=== PATIENT | male | born 1970 | race American Indian/Alaskan Native ===

== ENCOUNTER 2018-06-09 14:12 | Emergency (ER) | payer OTHER ==
[2018-06-09] MEDS ORDERED: BENADRYL IV ONE (15:49)
[2018-06-09] MEDS ORDERED: TORADOL IV ONE (15:49)
[2018-06-09] MEDS ORDERED: REGLAN IV ONE (15:49)
--- NOTE | 2018-06-09 15:57 | Emergency Department Report ---
Blank Doc - Documentation Documentation: 47 year old male with a past medical history of chronic headaches for the past 5 -6 years presents to Hospital complaining of headache. Patient states he gets headaches almost every day. Headaches include both temples and forehead. Today pain is worse than usual with photophobia and nausea. No vomiting or focal weakness reported. Patient states he felt hot and sweaty earlier today but did not check for fever. Patient takes Goody powders daily headaches which typically helps. It did not help today. He has never had a CAT scan or seen a neurologist Neuro exam nonfocal No nuchal rigidity IV Reglan, Benadryl, and Toradol CT head Mid-level to follow
--- NOTE | 2018-06-09 16:22 | Cat Scan Report ---
FINAL REPORT EXAM: CT HEAD/BRAIN WO CON HISTORY: frontal/bitemporal ibrahim, photophobia TECHNIQUE: CT examination of the head without IV contrast PRIORS: None. FINDINGS: Scattered slight mucosal thickening and opacity in the left mastoid air cells posteriorly and inferiorly. Small fluid level visualized, nonspecific. Left middle ear cavity clear. Right mastoid air cells and middle ear cavity clear. Paranasal sinuses clear. Bone windows demonstrate no acute fracture. The brain is without mass, mass effect, hemorrhage, or acute infarct. There is no extra-axial intracranial bleed, brain bleed, or midline shift. The ventricles and sulci are age-appropriate. IMPRESSION: No acute CVA, intracranial bleed, or brain mass Left mastoid air cell opacity with small fluid level may reflect left eustachian tube dysfunction. Differential includes left mastoiditis
--- NOTE | 2018-06-09 17:03 | Emergency Department Report ---
ED Headache HPI - General Chief Complaint: Headache Stated Complaint: HEADACHE Time Seen by Provider: 06/09/18 15:44 - History of Present Illness Initial Comments: This is a 47-year-old male nontoxic, well nourished in appearance, no acute signs of distress presents to the ED with c/o of acute on chronic headache x6 years. Patient describes headache as diffuse with level of 3 out of 10. Patient also has photophobia and some nausea with no vomiting. Patient denies thunderclap headache. Patient denies any radiation of pain. Patient denies any head trauma. Patient denies any visual changes. Patient denies worse headache. Patient stated that darkness makes headache better and bright lights make the headache worse. Patient denies any numbness, tingling, fever, chills, nausea, vomiting, chest pain, shortness of breath, stiff neck. Patient denies any radiation of pain. Patient denies any allergies. Past medical history includes migraine headaches. Timing/Duration: episodic Quality: mild, achy Head Injury Location: other (diffuse) Recent Head Trauma: no recent headache/trauma, occasional headaches Associated Symptoms: denies symptoms. denies: confusion, fatigue, facial pain, fever/chills, flushing, loss of consciousness, nausea/vomiting, nasal congestion , nasal drainage, numbness in legs/feet, rash, seizures, sinus infection, stiff neck, vision changes, weakness Allergies/Adverse Reactions: Allergies No Known Allergies Allergy (Unverified 06/09/18 14:20) Home Medications: Ambulatory Orders Butalb/Acetamin/Caff 50-325-40 [Fioricet] 1 tab PO Q6HR PRN #12 tab 06/09/18 ED Review of Systems ROS: Stated complaint: HEADACHE Other details as noted in HPI Constitutional: denies: chills, fever Eyes: denies: eye pain, eye discharge, vision change ENT: denies: ear pain, throat pain Respiratory: denies: cough, shortness of breath, wheezing Cardiovascular: denies: chest pain, palpitations Endocrine: no symptoms reported Gastrointestinal: denies: abdominal pain, nausea, vomiting, diarrhea Genitourinary: denies: urgency, dysuria Musculoskeletal: denies: back pain, joint swelling, arthralgia Skin: denies: rash, lesions Neurological: headache. denies: weakness, paresthesias Psychiatric: denies: anxiety, depression Hematological/Lymphatic: denies: easy bleeding, easy bruising ED Past Medical Hx - Past Medical History Previous Medical History?: No - Surgical History Past Surgical History?: Yes Additional Surgical History: right hand - Social History Smoking Status: Current Every Day Smoker Substance Use Type: Alcohol, Marijuana - Medications Home Medications: Home Medications Medication Instructions Recorded Confirmed Last Taken Type Butalb/Acetamin/Caff 50-325-40 1 tab PO Q6HR PRN #12 tab 06/09/18 Unknown Rx [Fioricet] ED Physical Exam - General Limitations: No Limitations General appearance: alert, in no apparent distress - Head Head exam: Present: atraumatic, normocephalic - Eye Eye exam: Present: normal appearance, PERRL, EOMI Pupils: Present: normal accommodation - ENT ENT exam: Present: normal exam, mucous membranes moist - Neck Neck exam: Present: normal inspection, full ROM. Absent: tenderness, meningismus, lymphadenopathy - Respiratory Respiratory exam: Present: normal lung sounds bilaterally. Absent: respiratory distress, wheezes, rales, rhonchi, stridor, chest wall tenderness, accessory muscle use, decreased breath sounds, prolonged expiratory - Cardiovascular Cardiovascular Exam: Present: regular rate, normal rhythm, normal heart sounds. Absent: bradycardia, tachycardia, irregular rhythm, systolic murmur, diastolic murmur, rubs, gallop - GI/Abdominal GI/Abdominal exam: Present: soft, normal bowel sounds. Absent: distended, tenderness, guarding, rebound, rigid, diminished bowel sounds - Rectal Rectal exam: Present: deferred - Extremities Exam Extremities exam: Present: normal inspection, full ROM, normal capillary refill. Absent: tenderness - Back Exam Back exam: Present: normal inspection, full ROM. Absent: tenderness, CVA tenderness (R), CVA tenderness (L), muscle spasm, paraspinal tenderness, vertebral tenderness, rash noted - Neurological Exam Neurological exam: Present: alert, oriented X3, CN II-XII intact, normal gait - Expanded Neurological Exam Expanded Patient oriented to: Present: person, place, time Cranial nerves: EOM's Intact: Normal, Gag Reflex: Normal, Facial Sensation: Normal Cerebellar function: Finger to Nose: Normal Upper motor neuron: Pronator Drift: Normal, Sensory Extinction: Normal Sensory exam: Upper Extremity Light Touch: Normal, Upper Extremity Pin Prick: Normal, Upper Extremity Temperature: Normal, UE 2 Point Discrimination: Normal, Lower Extremity Light Touch: Normal, Lower Extremity Pin Prick: Normal, Lower Extremity Temperature: Normal, LE 2 Point Discrimination: Normal Motor strength exam: RUE: 5, LUE: 5, RLE: 5, LLE: 5 Best Eye Response (Letty): (4) open spontaneously Best Motor Response (Allen): (6) obeys commands Best Verbal Response (Allen): (5) oriented Letty Total: 15 - Psychiatric Psychiatric exam: Present: normal affect, normal mood - Skin Skin exam: Present: warm, dry, intact, normal color. Absent: rash ED Course Vital Signs 06/09/18 14:16 Temperature 97.6 F Pulse Rate 53 L Respiratory 20 Rate Blood Pressure 131/44 O2 Sat by Pulse 100 Oximetry - Reevaluation(s) Reevaluation #1: 06/09/18 17:04 Patient is speaking in full sentences with no signs of distress noted. ED Medical Decision Making - Medical Decision Making This is a 47-year-old male that presents with headache. Patient is stable and was examined by me and Dr. Mccabe. Patient is neurologically stable. There is no stiff neck or neck pain. Vital signs are stable. Patient is afebrile. CT scan of head/brain obtained and dictated by the radiologist within normal limits. Patient is notified of the CT report with no questions noted. Patient received Benadryl, Reglan, Toradol which the patient stated that headache has subsided and resolved. Patient was instructed not to operate any machinery after discharged due to drowsiness of Benadryl. Patient stated that a family member will drive patient home. Patient is discharged with Fioricet. Patient was referred to Follow-up with a primary care/neurologist doctor in 3-5 days or if symptoms worsen and continue return to emergency room as soon as possible. At time of discharge, the patient does not seem toxic or ill in appearance. No acute signs of distress noted. Patient agrees to discharge treatment plan of care. No further questions noted by the patient. Critical care attestation.: If time is entered above; I have spent that time in minutes in the direct care of this critically ill patient, excluding procedure time. ED Disposition Clinical Impression: Headache Qualifiers: Headache type: unspecified Headache chronicity pattern: episodic headache Intractability: not intractable Qualified Code(s): R51 - Headache Disposition: DC-01 TO HOME OR SELFCARE Is pt being admited?: No Does the pt Need Aspirin: No Condition: Stable Instructions: Acute Headache (ED), Butalbital/Aspirin/Caffeine (By mouth) Additional Instructions: Follow-up with a primary care/neurologist doctor in 3-5 days or if symptoms worsen and continue return to emergency room as soon as possible. Prescriptions: Butalb/Acetamin/Caff 50-325-40 [Fioricet] 1 tab PO Q6HR PRN #12 tab PRN Reason: Headache Referrals: PRIMARY CARE, [Primary Care Provider] - 3-5 Days CAITLIN GONSALES MD [Staff Physician] - 3-5 Days CATALINA CARMONA MD [Staff Physician] - 3-5 Days [facility] [Outside] - 3-5 Days Forms: Work/School Release Form(ED)
[2018-06-09 17:29] VITALS: BP 138/83
== END 2018-06-09 17:27 | disposition home or self-care (01) ==
LOC: ED 14:12
DX: R51 Headache (principal); F17.200 Nicotine dependence, unspecified, uncomplicated; F12.90 Cannabis use, unspecified, uncomplicated
CPT/HCPCS: 70450; 96374; 96375; 99283; J1200; J1885; J2765

== ENCOUNTER 2021-01-02 12:02 | Emergency (ER) | payer SELFPAY ==
[2021-01-02 13:43] LABS: Hematocrit 33.5 % (35.5-45.6); Hemoglobin 11.2 gm/dl (11.8-15.2); Mean Corpuscular HGB Conc 34 % (32-34); Mean Corpuscular Volume 90 fl (84-94); Platelet Count 227 K/mm3 (140-440); Red Blood Count 3.75 M/mm3 (3.65-5.03); Red Cell Distribution Width 13.6 % (13.2-15.2)
[2021-01-02 14:00] LABS: Alanine Aminotransferase 7 units/L (7-56); Albumin 3.6 g/dL (3.9-5); BUN/Creatinine Ratio 8; Blood Urea Nitrogen 8 mg/dL (9-20); Calcium 8.2 mg/dL (8.4-10.2); Hemolysis Index 3
[2021-01-02 14:26] LABS: Bilirubin,Urine NEG (Negative); Blood,Urine NEG (Negative); Color,Urine Yellow (Yellow); Mucus,Urine FEW /HPF; Protein,Urine <15 mg/dL mg/dL (Negative)
[2021-01-02 15:23] LABS: Total Cells Counted 100
[2021-01-02 15:24] LABS: Platelet Estimate Consistent w Auto; RBC Morphology Normal
[2021-01-02] MEDS ORDERED: KETOROLAC 30 MG/1 ML INJ IV ONE (15:46)
[2021-01-02 16:13] VITALS: BP 132/91
--- NOTE | 2021-01-02 16:30 | Cat Scan Report ---
CT ABDOMEN AND PELVIS WITH CONTRAST HISTORY: Lower abdominal pain for 3 days COMPARISON: None TECHNIQUE: Routine abdominal and pelvic CT exam performed following intravenous contrast administrat ion.. All CT scans at this location are performed using CT dose reduction for ALARA by means of autom ated exposure control. FINDINGS: CT ABDOMEN: Lung Bases: Mild linear scarring in the right middle lobe. Liver: No significant abnormality. Biliary: No significant abnormality. Spleen: No significant abnormality. Unenlarged. Pancreas: No significant abnormality. Adrenals: No significant abnormality. Kidneys: No significant abnormality. Lymphatics: There is mild retroperitoneal adenopathy. For example, there is a left periaortic node on image 71 of series #2 that measures 2.5 x 2.0 cm. Vasculature: Atherosclerotic but nonaneurysmal abdominal aorta. Bowel/Peritoneum: No significant abnormality. No free air. No free fluid. Normal appendix. CT PELVIC: : There is an incompletely visualized right-sided hydrocele. Lymphatics: There is mild bilateral inguinal adenopathy. For example, there is a right inguinal lymph node that measures 1.4 x 2.1 cm. Osseous Structures: No aggressive appearing osseous lesions. Additional Findings: None IMPRESSION: 1. There is retroperitoneal and bilateral inguinal adenopathy, of uncertain etiology. Differential co nsiderations would include reactive adenopathy, metastatic adenopathy, or lymphoproliferative disorde r/neoplasm. 2. Incidental right scrotal hydrocele noted. Signer Name: Simon Rubalcava MD Signed: 01/02/2021 4:26 PM Workstation Name: [id number]
--- NOTE | 2021-01-02 16:56 | Emergency Department Report ---
ED Abdominal Pain HPI - General Chief Complaint: Abdominal Pain Stated Complaint: ABD PAIN Time Seen by Provider: 01/02/21 14:26 Source: patient Mode of arrival: Ambulatory Limitations: No Limitations - History of Present Illness Initial Comments: Patient is a 50-year-old F [place] male who is presenting with some generalized abdominal pain which is been off and on for the past 2 to 3 days. This is a crampy pain. He denies nausea vomiting diarrhea or dysuria. States he does have some urinary hesitancy but attributed this to probable prostate issue. Patient has a right scrotal hernia has been present for several months but states he is still having bowel movements. He denies any fevers chills cough cold congestion at this time. Severity scale (0 -10): 3 - Related Data Previous Rx's Medication Instructions Recorded Last Taken Type Ciprofloxacin HCl 500 mg PO BID #20 tablet 01/02/21 Unknown Rx Dicyclomine [Bentyl] 20 mg PO QID #10 tablet 01/02/21 Unknown Rx metroNIDAZOLE [Flagyl] 500 mg PO Q12HR #20 tab 01/02/21 Unknown Rx traMADoL [Ultram] 50 mg PO Q6HR PRN #12 tablet 01/02/21 Unknown Rx Allergies Allergy/AdvReac Type Severity Reaction Status Date / Time No Known Allergies Allergy Verified 01/02/21 14:29 ED Review of Systems ROS: Stated complaint: ABD PAIN Other details as noted in HPI Comment: All other systems reviewed and negative ED Past Medical Hx - Past Medical History Previous Medical History?: No - Surgical History Additional Surgical History: right hand - Social History Smoking Status: Never Smoker Substance Use Type: None - Medications Home Medications: Home Medications Medication Instructions Recorded Confirmed Last Taken Type Ciprofloxacin HCl 500 mg PO BID #20 tablet 01/02/21 Unknown Rx Dicyclomine [Bentyl] 20 mg PO QID #10 tablet 01/02/21 Unknown Rx metroNIDAZOLE [Flagyl] 500 mg PO Q12HR #20 tab 01/02/21 Unknown Rx traMADoL [Ultram] 50 mg PO Q6HR PRN #12 tablet 01/02/21 Unknown Rx ED Physical Exam - General Limitations: No Limitations General appearance: alert, in no apparent distress - Head Head exam: Present: atraumatic, normocephalic - Eye Eye exam: Present: normal appearance, PERRL, EOMI - ENT ENT exam: Present: mucous membranes moist - Neck Neck exam: Present: normal inspection - Respiratory Respiratory exam: Present: normal lung sounds bilaterally. Absent: respiratory distress, wheezes, rales, rhonchi - Cardiovascular Cardiovascular Exam: Present: regular rate, normal rhythm, normal heart sounds. Absent: systolic murmur, diastolic murmur, rubs, gallop - GI/Abdominal GI/Abdominal exam: Present: soft, normal bowel sounds, other (Patient states he is pain-free at this time). Absent: distended, tenderness, guarding, rebound, rigid - Rectal Rectal exam: Present: deferred - External exam: Present: other (Right scrotal hernia which is reducible) - Extremities Exam Extremities exam: Present: normal inspection - Back Exam Back exam: Present: normal inspection - Neurological Exam Neurological exam: Present: alert, oriented X3 - Psychiatric Psychiatric exam: Present: normal affect, normal mood - Skin Skin exam: Present: warm, dry, intact, normal color. Absent: rash ED Course Vital Signs 01/02/21 01/02/21 01/02/21 12:11 14:22 14:23 Temperature 98 F Pulse Rate 90 80 Respiratory 20 16 18 Rate Blood Pressure 117/92 Blood Pressure 115/83 [Left] O2 Sat by Pulse 96 98 Oximetry 01/02/21 16:12 Temperature Pulse Rate 64 Respiratory 16 Rate Blood Pressure Blood Pressure 132/91 [Left] O2 Sat by Pulse 99 Oximetry ED Medical Decision Making - Lab Data Result diagrams: 01/02/21 12:59 01/02/21 12:59 Lab Results 01/02/21 01/02/21 01/02/21 Range/Units 12:59 12:59 14:15 WBC 3.6 L (4.5-11.0) K/mm3 RBC 3.75 (3.65-5.03) M/mm3 Hgb 11.2 L (11.8-15.2) gm/dl Hct 33.5 L (35.5-45.6) % MCV 90 (84-94) fl MCH 30 (28-32) pg MCHC 34 (32-34) % RDW 13.6 (13.2-15.2) % Plt Count 227 (140-440) K/mm3 Lymph % (Auto) Administration Dean Add Manual Diff Complete Total Counted 100 Seg Neutrophils % Administration Dean Seg Neuts % (Manual) 43.0 (40.0-70.0) % Lymphocytes % (Manual) 56.0 H (13.4-35.0) % Monocytes % (Manual) 1.0 (0.0-7.3) % Nucleated RBC % Not Reportable Seg Neutrophils # Man 1.5 L (1.8-7.7) K/mm3 Band Neutrophils # 0.0 K/mm3 Lymphocytes # (Manual) 2.0 (1.2-5.4) K/mm3 Abs React Lymphs (Man) 0.0 K/mm3 Monocytes # (Manual) 0.0 (0.0-0.8) K/mm3 Eosinophils # (Manual) 0.0 (0.0-0.4) K/mm3 Basophils # (Manual) 0.0 (0.0-0.1) K/mm3 Metamyelocytes # 0.0 K/mm3 Myelocytes # 0.0 K/mm3 Promyelocytes # 0.0 K/mm3 Blast Cells # 0.0 K/mm3 WBC Morphology Not Reportable Hypersegmented Neuts Not Reportable Hyposegmented Neuts Not Reportable Hypogranular Neuts Not Reportable Smudge Cells Not Reportable Toxic Granulation Not Reportable Toxic Vacuolation Not Reportable Dohle Bodies Not Reportable Pelger-Huet Anomaly Not Reportable Elmo Rods Not Reportable Platelet Estimate Consistent w auto Clumped Platelets Not Reportable Plt Clumps, EDTA Not Reportable Large Platelets Not Reportable Giant Platelets Not Reportable Platelet Satelliting Not Reportable Plt Morphology Comment Not Reportable RBC Morphology Normal Dimorphic RBCs Not Reportable Polychromasia Not Reportable Hypochromasia Not Reportable Poikilocytosis Not Reportable Anisocytosis Not Reportable Microcytosis Not Reportable Macrocytosis Not Reportable Spherocytes Not Reportable Pappenheimer Bodies Not Reportable Sickle Cells Not Reportable Target Cells Not Reportable Tear Drop Cells Not Reportable Ovalocytes Not Reportable Helmet Cells Not Reportable Davis-Winslow Bodies Not Reportable Laurel Rings Not Reportable Ching Cells Not Reportable Bite Cells Not Reportable Crenated Cell Not Reportable Elliptocytes Not Reportable Acanthocytes (Spur) Not Reportable Rouleaux Not Reportable Hemoglobin C Crystals Not Reportable Schistocytes Not Reportable Malaria parasites Not Reportable Femi Bodies Not Reportable Hem Pathologist Commnt No Sodium 139 (137-145) mmol/L Potassium 4.0 (3.6-5.0) mmol/L Chloride 103.3 (98-107) mmol/L Carbon Dioxide 27 (22-30) mmol/L Anion Gap 13 mmol/L BUN 8 L (9-20) mg/dL Creatinine 1.0 (0.8-1.3) mg/dL Estimated GFR > 60 ml/min BUN/Creatinine Ratio 8 % Glucose 98 (75-100) mg/dL Calcium 8.2 L (8.4-10.2) mg/dL Total Bilirubin 0.20 (0.1-1.2) mg/dL AST 23 (5-40) units/L ALT 7 (7-56) units/L Alkaline Phosphatase 88 (35-129) units/L Total Protein 7.9 (6.3-8.2) g/dL Albumin 3.6 L (3.9-5) g/dL Albumin/Globulin Ratio 0.8 % Lipase 23 (13-60) units/L Urine Color Yellow (Yellow) Urine Turbidity Clear (Clear) Urine pH 6.0 (5.0-7.0) Ur Specific Winslow 1.018 (1.003-1.030) Urine Protein <15 mg/dl (Negative) mg/dL Urine Glucose (UA) Neg (Negative) mg/dL Urine Ketones Neg (Negative) mg/dL Urine Blood Neg (Negative) Urine Nitrite Neg (Negative) Urine Bilirubin Neg (Negative) Urine Urobilinogen 2.0 (<2.0) mg/dL Ur Leukocyte Esterase Neg (Negative) Urine WBC (Auto) 1.0 (0.0-6.0) /HPF Urine RBC (Auto) 3.0 (0.0-6.0) /HPF U Epithel Cells (Auto) < 1.0 (0-13.0) /HPF Urine Mucus Few /HPF - Radiology Data Reporting MD: Simon Rubalcava Dictation Time: January 02, 2021 15:26 Chinese Language Professor: Not available Electrical Engineering Teacher Date: CT ABDOMEN AND PELVIS WITH CONTRAST HISTORY: Lower abdominal pain for 3 days COMPARISON: None TECHNIQUE: Routine abdominal and pelvic CT exam performed following intravenous contrast administration.. All CT scans at this location are performed using CT dose reduction for ALARA by means of automated exposure control. FINDINGS: CT ABDOMEN: Lung Bases: Mild linear scarring in the right middle lobe. Liver: No significant abnormality. Biliary: No significant abnormality. Spleen: No significant abnormality. Unenlarged. Pancreas: No significant abnormality. Adrenals: No significant abnormality. Kidneys: No significant abnormality. Lymphatics: There is mild retroperitoneal adenopathy. For example, there is a left periaortic node on image 71 of series #2 that measures 2.5 x 2.0 cm. Vasculature: Atherosclerotic but nonaneurysmal abdominal aorta. Bowel/Peritoneum: No significant abnormality. No free air. No free fluid. Normal appendix. CT PELVIC: : There is an incompletely visualized right-sided hydrocele. Lymphatics: There is mild bilateral inguinal adenopathy. For example, there is a right inguinal lymph node that measures 1.4 x 2.1 cm. Osseous Structures: No aggressive appearing osseous lesions. Additional Findings: None IMPRESSION: 1. There is retroperitoneal and bilateral inguinal adenopathy, of uncertain etiology. Differential considerations would include reactive adenopathy, metastatic adenopathy, or lymphoproliferative disorder/neoplasm. 2. Incidental right scrotal hydrocele noted. Signer Name: Simon Rubalcava MD Signed: 01/02/2021 3:26 PM Workstation Name: [id number] - Medical Decision Making Patient with significant lymphadenopathy in the abdomen which could be neoplastic in nature but also could be a mesenteric adenitis. Patient be started on Cipro Flagyl we will give medication for symptomatic relief and follow-up with general surgery for further evaluation and for evaluation of his hernia. Critical care attestation.: If time is entered above; I have spent that time in minutes in the direct care of this critically ill patient, excluding procedure time. ED Disposition Clinical Impression: Mesenteric adenitis, Inguinal hernia Disposition: - TO HOME OR SELFCARE Is pt being admited?: No Does the pt Need Aspirin: No Condition: Stable Instructions: Inguinal Hernia, Adult, [id number], Mesenteric Adenitis, Adult Referrals: DIMITRI LABOY MD [Staff Physician] - 3-5 Days Time of Disposition: 16:59
== END 2021-01-02 17:22 | disposition home or self-care (01) ==
LOC: ED 12:02
DX: I88.0 Nonspecific mesenteric lymphadenitis (principal); K40.90 Unilateral inguinal hernia, without obstruction or gangrene, not specified as recurrent; Z98.890 Other specified postprocedural states; Z79.899 Other long term (current) drug therapy
CPT/HCPCS: 36415; 74177; 80053; 81001; 83690; 85007; 85025; 96374; 99284; J1885; Q9967

== ENCOUNTER 2021-02-08 05:59 | Day surgery (SDC) | payer OTHER ==
[2021-02-08] MEDS ORDERED: MAGNESIUM OXIDE 400 MG TAB PO SCH (06:00)
[2021-02-08] MEDS ORDERED: GABAPENTIN 300 MG CAP PO NR (06:00)
[2021-02-08] MEDS ORDERED: CELECOXIB 200 MG CAP PO NR (06:00)
[2021-02-08] MEDS ORDERED: LACTATED RINGERS 1,000 ML IV SCH (06:00)
[2021-02-08] MEDS ORDERED: ACETAMINOPHEN 500 MG TAB PO ONE (06:00)
[2021-02-08] MEDS ORDERED: BACTERIOSTATIC SODIUM CHLORIDE 0.9% 30 ML VIAL INFILTRATI ONE (06:16)
[2021-02-08] MEDS ORDERED: ceFAZolin/STERILE WATER 2 GM/20 ML SYRINGE IV NR (07:00)
[2021-02-08 08:04] LABS: Basophils % (Auto) 0.7 % (0.0-1.8); Eosinophils % (Auto) 0.3 % (0.0-4.3); Hematocrit 30.5 % (35.5-45.6); Hemoglobin 10.2 gm/dl (11.8-15.2); Lymphocytes # (Auto) 2.3 K/mm3 (1.2-5.4); Lymphocytes % (Auto) 49.4 % (13.4-35.0); Mean Corpuscular HGB Conc 34 % (32-34); Mean Corpuscular Volume 87 fl (84-94); Monocytes # (Auto) 0.4 K/mm3 (0.0-0.8); Monocytes % (Auto) 9.6 % (0.0-7.3); Platelet Count 219 K/mm3 (140-440); Red Blood Count 3.51 M/mm3 (3.65-5.03); Red Cell Distribution Width 13.1 % (13.2-15.2)
[2021-02-08 08:14] LABS: BUN/Creatinine Ratio 13; Blood Urea Nitrogen 10 mg/dL (9-20); Hemolysis Index 1
[2021-02-08 10:58] VITALS: BP 125/72
--- NOTE | 2021-02-08 15:49 | Event Note ---
Date: 02/08/21 Late note: Called this am around 630am by preop RN regarding patient having fever of 101.6 on 2 separate checks with forehead and oral thermometer. Spoke with patient who states he feels fine without chills, cough, sneezing, urinary symptoms, sore throat. COVID test was negative. Due to fever of unknown origin, recommend w/u including CBC, BMP, UA, blood cultures. As hernia surgery involves placement of mesh, it is prudent to r/o infection before proceeding with surgery. Therefore, will cancel surgery today and reschedule once labs and cultures results return. Explained this to patient. If all negative, will reschedule for surgery next week.
== END 2021-02-08 06:00 | disposition home or self-care (01) ==
LOC: OR 05:59
PROVIDERS: ATTEND Surgery
DX: K40.90 Unilateral inguinal hernia, without obstruction or gangrene, not specified as recurrent (principal); R59.0 Localized enlarged lymph nodes; F17.210 Nicotine dependence, cigarettes, uncomplicated; Z53.8 Procedure and treatment not carried out for other reasons; Z79.899 Other long term (current) drug therapy; Z98.890 Other specified postprocedural states
CPT/HCPCS: 36415; 80048; 85025; 87040; J0690; J7120; U0003

== ENCOUNTER 2021-02-12 05:59 | Day surgery (SDC) | payer OTHER ==
[2021-02-12] MEDS ORDERED: MIDAZOLAM 2 MG/2 ML INJ IV NR (06:00)
[2021-02-12] MEDS ORDERED: ACETAMINOPHEN 500 MG TAB PO SCH (06:00)
[2021-02-12] MEDS ORDERED: LACTATED RINGERS 1,000 ML IV SCH (06:00)
[2021-02-12] MEDS ORDERED: ceFAZolin/STERILE WATER 2 GM/20 ML SYRINGE IV NR (07:00)
[2021-02-12] MEDS ORDERED: ONDANSETRON 4 MG/2 ML INJ IV PRN (07:13)
[2021-02-12] MEDS ORDERED: fentaNYL 100 MCG/2 ML INJ IV PRN (07:13)
--- NOTE | 2021-02-12 07:13 | Anesthesia Day of Surgery ---
Anesthesia Day of Surgery - Day of Surgery Patient Examined: Yes Patient H&P Reviewed: Yes Patient is NPO: Yes
--- NOTE | 2021-02-12 07:13 | Anesthesia Consultation ---
Anesthesia Consult and Med Hx Date of service: 02/12/21 - Airway Anesthetic Teeth Evaluation: Dentures ROM Head & Neck: Adequate Mental/Hyoid Distance: Adequate Mallampati Class: Class III Intubation Access Assessment: Possibly Difficult - Pre-Operative Health Status ASA Pre-Surgery Classification: ASA2 Proposed Anesthetic Plan: General - Pulmonary Hx Smoking: Yes (former smoker quit 3 wks ago) Hx Respiratory Symptoms: No - Cardiovascular System Hx Hypertension: No - Central Nervous System CVA: No - Endocrine Hx Renal Disease: No Hx Liver Disease: No Hx Insulin Dependent Diabetes: No Hx Non-Insulin Dependent Diabetes: No Hx Thyroid Disease: No - Other Systems Hx Substance Use: Yes (THC) Hx Obesity: No - Additional Comments Anesthesia Medical History Comments: No hx anesthetic complications.
[2021-02-12] MEDS ORDERED: HYDROmorphone 1 MG/1 ML INJ ONE (07:14)
[2021-02-12] MEDS ORDERED: LIDOCAINE MPF (2%) 20 MG/1 ML VIAL 5 ML ONE (07:14)
[2021-02-12] MEDS ORDERED: MIDAZOLAM 2 MG/2 ML INJ ONE (07:14)
[2021-02-12] MEDS ORDERED: propofoL 200 MG/20 ML VIAL IV ONE (07:14)
[2021-02-12] MEDS ORDERED: BUPIVACAINE/PF (0.5%) 5 MG/1 ML 30 ML VIAL INFILTRATI ONE ×2 (07:33→08:10)
[2021-02-12] MEDS ORDERED: LIDOCAINE (1%) 10 MG/1 ML VIAL 20 ML MDV ONE (07:33)
[2021-02-12] MEDS ORDERED: SODIUM CHLORIDE 0.9% IRR 1,500 ML BOTTLE IR ONE (08:11)
[2021-02-12] MEDS ORDERED: LIDOCAINE (1%) 10 MG/1 ML VIAL 20 ML MDV INFILTRATI ONE (08:11)
--- NOTE | 2021-02-12 08:35 | Short Stay Summary ---
Short Stay Documentation Date of service: 02/12/21 - History Principal diagnosis: inguinal lymphadenopathy H&P: obtained from office - Allergies and Medications Current Medications: Allergies No Known Allergies Allergy (Verified 02/11/21 14:08) Active Medications Acetaminophen (Acetaminophen 500 Mg Tab) 1,000 mg PO PREOP PK Stop: 02/12/21 21:00 Cefazolin Sodium (Cefazolin/Sterile Water 2 Gm/20 Ml Syringe) 2 gm IV PREOP NR Stop: 02/12/21 23:01 Fentanyl (Fentanyl 100 Mcg/2 Ml Inj) 50 mcg IV Q5MIN PRN PRN Reason: Pain , Severe (7-10) Stop: 02/12/21 23:00 Lactated Ringer's (Lactated Ringers) 1,000 mls @ 100 mls/hr IV DIRECT PK Stop: 02/12/21 23:59 Midazolam HCl (Midazolam 2 Mg/2 Ml Inj) 2 mg IV PREOP NR Stop: 02/12/21 21:00 Ondansetron HCl (Ondansetron 4 Mg/2 Ml Inj) 4 mg IV ONCE PRN PRN Reason: Nausea And Vomiting Stop: 02/12/21 20:00 - Brief post op/procedure progress note Date of procedure: 02/12/21 Pre-op diagnosis: inguinal lymphadenopathy Post-op diagnosis: same Procedure: left inguinal lymph node excisional biopsy Anesthesia: MAC, local Findings: multiple palpable enlarged left inguinal lymph nodes - 2 excised. Surgeon: SOHAIL SUH Estimated blood loss: minimal Pathology: list (enlarged left inguinal lymph nodes x2) Specimen disposition: to lab Condition: stable - Hospital course Hospital course: Pt observed in PACU and discharged to home in stable condition - Disposition Condition at discharge: Good Disposition: DC-01 TO HOME OR SELFCARE Short Stay Discharge Plan Activity: no restrictions Diet: regular Wound: open to air (may shower tomorrow, pat incision dry and do not scrub) Follow up with: PRIMARY CARE, [Primary Care Provider] - 7 Days SOHAIL USH DO [Staff Physician] - 7 Days Prescriptions: traMADoL [Ultram 50 MG tab] 25 mg PO Q6H PRN #10 tablet PRN Reason: Pain
[2021-02-12 09:45] VITALS: BP 115/76
[2021-02-12 10:36] LABS: Bilirubin,Urine NEG (Negative); Blood,Urine NEG (Negative); Color,Urine Yellow (Yellow); Mucus,Urine FEW /HPF; Protein,Urine <15 mg/dL mg/dL (Negative); Urobilinogen,Urine < 2.0 mg/dL (<2.0)
--- NOTE | 2021-02-12 13:17 | Post Anesthesia Evaluation ---
- Post Anesthesia Evaluation Patient Participated: Yes Airway Patent: Yes Stable Respiratory Function: Yes Nausea/Vomiting: No Temp > 96.8F: Yes Pain Manageable: Yes Adequeate Hydration: Yes Anesthesia Complications: No
--- NOTE | 2021-02-13 11:57 | Operative Report ---
Operative Report Operative Report: Date of procedure: 02/12/21 Pre-op diagnosis: inguinal lymphadenopathy Post-op diagnosis: same Procedure: left inguinal lymph node excisional biopsy Anesthesia: MAC, local Findings: multiple palpable enlarged left inguinal lymph nodes - 2 excised. Surgeon: SOHAIL SUH Estimated blood loss: minimal Pathology: list (enlarged left inguinal lymph nodes x2) Specimen disposition: to lab Condition: stable Hospital course: Pt observed in PACU and discharged to home in stable condition HPI and indication: Patient is a 50-year-old male who was referred to the surgery clinic for a right inguinal hernia. During work-up he was found to have retroperitoneal lymphadenopathy as well as inguinal lymphadenopathy on CT scan and multiple palpable inguinal lymph nodes. Patient was having fevers of unknown etiology and infectious work-up was negative. Patient also admitted to unintentional weight loss and night sweats. It was recommended that he undergo excisional lymph node biopsy and to postpone hernia repair. All risk, benefits, alternatives to surgery were discussed with the patient questions answered. Consent obtained. Procedure in detail: Patient was identified in the preoperative area and ope rative site marked. He was taken back to the operating room and placed on the operating room table in supine position. After anesthesia was induced the left groin hair was clipped and the groin was prepped and draped in usual sterile fashion. Timeout was performed. Local anesthetic was infiltrated to skin at the intended incision site. A 3 cm incision was made in the left groin over the palpable lymph nodes. Dissection was carried down through the skin and subcutaneous tissue using Bovie electrocautery. The subcutaneous tissue was bluntly dissected with a hemostat until the palpable lymph nodes were visualized. The first lymph node was dissected from the surrounding tissue using a combination of blunt dissection electrocautery. This was excised and passed off the table as a specimen. The first lymph node was approximately 1 cm, round and well-circumscribed without evidence of inflammation. A second larger lymph node was identified and dissected free from the surrounding stru ctures and a similar fashion and passed off the table as a specimen. This lymph node was elongated, oblong shaped measuring approximately 3.5 cm without evidence of inflammation. The wound was then checked for hemostasis which was very carefully ensured. The wound was irrigated. Wound was then closed in a layered fashion. The deep dermal layer was closed with interrupted 3-0 Vicryl stitches. The skin was approximated using 4-0 Monocryl subcuticular running stitch and skin glue. At the end of the case all sponge, instrument, sharp counts were correct x2. The patient was awoken from anesthesia and taken to PACU in stable condition.
== END 2021-02-12 09:55 | disposition home or self-care (01) ==
LOC: OR 05:59
PROVIDERS: ATTEND Surgery
DX: R59.1 Generalized enlarged lymph nodes (principal); Z20.822 Contact with and (suspected) exposure to COVID-19; F17.210 Nicotine dependence, cigarettes, uncomplicated; Z79.899 Other long term (current) drug therapy; Z98.890 Other specified postprocedural states
CPT/HCPCS: 36415; 38500; 80048; 81001; 85025; 87040; 88305; 88341; 88342; J0690; J1170; J2250; J2704; J7120; U0003

== ENCOUNTER 2021-02-21 09:59 | Day surgery (SDC) | payer OTHER ==
[2021-02-21] MEDS ORDERED: ACETAMINOPHEN 325 MG TAB PO ONE (10:40)
[2021-02-21] MEDS ORDERED: ACETAMINOPHEN 325 MG TAB ONE (10:41)
[2021-02-21] MEDS ORDERED: ceFAZolin/STERILE WATER 2 GM/20 ML SYRINGE IV NR (11:00)
[2021-02-21] MEDS ORDERED: LACTATED RINGERS 1,000 ML IV SCH (11:10)
[2021-02-21] MEDS ORDERED: LACTATED RINGERS 1,000 ML ONE (11:15)
[2021-02-21] MEDS ORDERED: ROCURONIUM 50 MG/5 ML INJ IV ONE (11:25)
[2021-02-21] MEDS ORDERED: LIDOCAINE MPF (2%) 20 MG/1 ML VIAL 5 ML ONE (11:25)
[2021-02-21] MEDS ORDERED: fentaNYL 100 MCG/2 ML INJ ONE (11:26)
[2021-02-21] MEDS ORDERED: propofoL 200 MG/20 ML VIAL IV ONE ×2 (11:27→14:40)
--- NOTE | 2021-02-21 11:43 | Anesthesia Day of Surgery ---
Anesthesia Day of Surgery - Day of Surgery Patient Examined: Yes Patient H&P Reviewed: Yes Patient is NPO: Yes
[2021-02-21] MEDS ORDERED: ONDANSETRON 4 MG/2 ML INJ IV PRN (11:44)
[2021-02-21] MEDS ORDERED: HYDROmorphone 1 MG/1 ML INJ IV PRN ×2 (11:44)
[2021-02-21] MEDS ORDERED: BUPIVACAINE/PF (0.5%) 5 MG/1 ML 30 ML VIAL INFILTRATI ONE ×2 (11:55→13:30)
[2021-02-21] MEDS ORDERED: LIDOCAINE (1%) 10 MG/1 ML VIAL 20 ML MDV ONE (11:55)
[2021-02-21] MEDS ORDERED: MIDAZOLAM 2 MG/2 ML INJ ONE (11:57)
[2021-02-21] MEDS ORDERED: MIDAZOLAM 2 MG/2 ML INJ IV NR (12:00)
--- NOTE | 2021-02-21 12:20 | Event Note ---
Date: 02/21/21 HPI and plan: Patient is a 50-year-old male with a right inguinal scrotal hernia that is becoming more symptomatic. The patient was set up for surgery on 02/08/2021 however upon presentation on day of surgery he was found to be febrile. The patient was asymptomatic otherwise. No chest pain, shortness of breath, cough, sneezing, abdominal pain, nausea, vomiting. Patient was found to have nonspecific lymphadenopathy on CT scan 01/02/2021. At that time the surgery was canceled and a fever work-up was performed including a CBC, BMP, blood cu ltures, urinalysis and patient was scheduled for a lymph node biopsy. Covid test was negative. CBC showed normal white blood cell count without neutrophil shift. Lymphocytes were elevated. BMP showed mild hyponatremia. Blood cultures were negative x5 days. Urinalysis was negative. Lymph node biopsy showed reactive lymph nodes. Patient was therefore rescheduled for right inguinal hernia repair. Today the patient is once again febrile. He denies fevers or chills at home, chest pain, shortness of breath, nausea, vomiting, cough, congestion, abdominal pain. His infectious work-up has been negative and lymph node biopsy showed a benign reactive lymph node. His right inguinal hernia is becoming more painful. It is reducible. I discussed this with the patient in detail. At this point, as his symptoms are worsening, we will proceed with inguinal hernia repair with mesh. Although no infectious source for fevers has been identified, explained to patient that there is still a risk of mesh infection. He understands but is very eager to have his hernia repaired due to pain. We will also attempt to excise another palpable lymph node to send fresh as per the request of the pathologist. Will refer patient to infectious disease as outpatient for further work-up of fevers of unknown etiology. Patient has already been referred to gastroenterology for colonoscopy. The patient is agreeable to the above plan.
[2021-02-21] MEDS ORDERED: PHENYLEPHRINE 10 MG/1 ML INJ SDV ONE ×2 (12:33→14:43)
[2021-02-21] MEDS ORDERED: LIDOCAINE (1%) 10 MG/1 ML VIAL 20 ML MDV INFILTRATI ONE (13:33)
[2021-02-21] MEDS ORDERED: WATER FOR IRRIG STERILE 1,500 ML BOTTLE IR ONE (13:34)
[2021-02-21] MEDS ORDERED: GLYCOPYRROLATE 0.4 MG/2 ML INJ ONE (14:25)
[2021-02-21] MEDS ORDERED: ONDANSETRON 4 MG/2 ML INJ ONE (14:25)
[2021-02-21] MEDS ORDERED: NEOSTIGMINE 10MG/10 ML INJ MDV ONE (14:25)
--- NOTE | 2021-02-21 14:55 | Operative Report ---
Operative Report Operative Report: Date of procedure: 02/21/21 Pre-op diagnosis: right inguinal hernia, inguinal lymphadenopathy Post-op diagnosis: same Procedure: Robotic assisted right inguinal hernia with mesh Excisional lymph node biopsy - left inguinal Anesthesia: GETA, local, other (right ilioinguinal nerve block) Findings: 1. large indirect right inguinal hernia with adjacent mildly dilated small bowel 2. left inguinal lymphadenopathy Surgeon: SOHAIL SUH Estimated blood loss: minimal Pathology: list (left inguinal lymph node - sent fresh) Specimen disposition: to lab Condition: stable Condition at discharge: Good Disposition: DC-01 TO HOME OR SELFCARE HPI and indication: Patient is a 50-year-old male who was referred to the surgery clinic for a bulge in the right groin. He was found to have a right inguinal hernia on physical exam which was reducible but tender to palpation. It was recommended that the hernia be repaired. I discussed all risk, benefits, alternatives to repair with the patient and questions were answered. I explained that if the hernia was found on the left side at the same time, this would be fixed as well. The patient was agreeable. Consent obtained for robotic assisted right inguinal hernia repair with mesh, possible left, possible open. The patient also had nonspecific lymphadenopathy on CT scan. He was having fevers of unknown etiology and occasional night sweats. Infectious w/u was negative. WBC was normal. COVID test negative. UA and blcx negative. Lymph node biopsy revealed reactive lymph nodes. Pathology recommended sending an additional lymph node fresh for further evaluation. Patient also consented for inguinal lymph node bx. Procedure in detail: Patient was identified in the preoperative area, take back to operating room placed on operative table in supine position. After anesthesia was induced both arms were tucked and all bony prominences padded appropriately. A Carmona catheter was sterilely placed by the circulating nurse. The abdomen and b/l groins were then prepped and draped in usual sterile fashion and a timeout performed. Local anesthetic was infiltrated to skin at the intended incision sites. A supraumbilical incision was made through which a Ayanna ess needle was inserted. Veress needle positioning was confirmed using saline drop test and the abdomen insufflated to 15 mmHg. Once the abdomen was insufflated, the Veress needle was removed and a 5 mm Optiview trocar was placed as incision. The abdomen is inspected there was no underlying injury to any of the abdominal structures. Patient was placed in Trendelenburg and the pelvis examined. There was a right inguinal hernia with adjacent mildly distended small bowel loops. No obvious hernia on the left. At this point, an 8 mm right upper quadrant and left upper quadrant robotic trocars were then placed under direct visualization. The 5 mm supraumbilical trocar was removed and replaced with a 12 mm balloon trocar under direct visualization. A Ray-Gopi was placed into the abdomen. The robot was then docked. A fenestrated bipolar was placed into arm #2 and a monopolar scissor in arm #1. The surgeon was then transferred to the console. First, I created a right sided preperitoneal flap. The peritoneum was scored approximately 5 to 6 cm from the hernia defect. The peritoneum was then incised from the midline to the ASIS. The preperitoneal flap was then developed in an avascular plane. I first defined the medial margin by dissecting to the pubic tubercle. The pubic tubercle was cleared of overlying fatty tissue using blunt dissection. I then created the lateral margin in a similar fashion. Great care was taken to avoid injury to any nerves. There was a indirect inguinal hernia and the hernia sac was gently reduced using blunt dissection and transecting cremasteric fibers with electrocautery. During the dissection, the cord structures were identified and protected. The cord structures and vas deferens were visualized throughout the entire dissection. Once the hernia sac was completely reduced, the peritoneal flap was checked for hemostasis. Any additional cremasteric fibers that were were tenting up the peritoneum were divided. Hemostasis was carefully ensured. There was a large tear at the base of the hernia sac as it was very thin. The hernia was repaired using a RIGHT large 3D max mesh. The mesh along with suture material was placed into the abdomen by the assistant grocery store manager. The mesh was positioned into the preperitoneal flap in the usual fashion. The medial portion of the mesh was sutured to Damir's ligament using an interrupted 2-0 Vicryl s titch. The lateral aspect of the mesh was sutured to the anterior lateral abdominal wall using a 2-0 Vicryl interrupted stitch. The mesh was seen to lay flat in the pocket with excellent coverage. The peritoneum was then reapproximated using 3-0 running V-Loc stitch x2. The tear in the hernia sac was closed using a running 3-0 vloc stitch. The entirety of the mesh was covered with peritoneum. The robot was then undocked and the surgeon scrubbed back in. The remainder of the case was performed laparoscopically. All sharp materials along with a Ray-Gopi were removed from the abdomen under direct visualization. The 12 mm port was removed and the fascia closed using a interrupted 0 Vicryl stitch. The abdomen was then slowly desufflated and the mesh was seen to lay flat in the preperitoneal space. The remaining trocars were removed. Skin incisions were once again infiltrated with local anesthetic. RIGHT ilioinguinal nerve block was also performed with 5 cc of local anesthetic. The skin incisions were approximated with 4-0 Monocryl subcuticular stitches and skin glue. We then examined the groins. There was a palpable lymph node in the left inguinal region. Local anesthetic was infiltrated into the skin at the intended incision site. A 2 cm incision was made using a 15 blade and dissection carried down through the subcutaneous tissue using hemostat. The lymph node was identified and grasped with a singling forcep. This was dissected circumferentially using a hemostat and electrocautery until excised from the wound bed. This was passed off the table as a specimen and instructed to go fresh to pathology. The wound was then checked for hemostasis which was carefully ensured. The skin incision was closed using running 4-0 Monocryl subcuticular stitch and skin glue. At the end of the case all sponge, instrument, sharp counts were correct x2. Patient was awoken from anesthesia and Carmona catheter removed. Both testicles were palpated in the scrotum in anatomic position. The patient was taken to PACU in stable condition.
--- NOTE | 2021-02-21 14:59 | Short Stay Summary ---
Short Stay Documentation Date of service: 02/21/21 - History Principal diagnosis: right inguinal hernia, inguinal lymphadenopathy H&P: obtained from office - Allergies and Medications Current Medications: Allergies No Known Allergies Allergy (Verified 02/18/21 16:32) Home Medications Medication Instructions Recorded Confirmed Last Taken Type traMADoL [Ultram 50 MG tab] 25 mg PO Q6H PRN #10 tablet 02/12/21 02/21/21 02/20/21 20:00 Rx Active Medications Cefazolin Sodium (Cefazolin/Sterile Water 2 Gm/20 Ml Syringe) 2 gm IV PREOP NR Stop: 02/21/21 20:00 Hydromorphone HCl (Hydromorphone 1 Mg/1 Ml Inj) 0.25 mg IV Q10MIN PRN PRN Reason: Pain, Moderate (4-6) Stop: 02/22/21 11:43 Hydromorphone HCl (Hydromorphone 1 Mg/1 Ml Inj) 0.5 mg IV Q10MIN PRN PRN Reason: Pain , Severe (7-10) Stop: 02/22/21 11:43 Lactated Ringer's (Lactated Ringers) 1,000 mls @ 75 mls/hr IV DIRECT PK Last Admin: 02/21/21 11:18 Dose: 75 mls/hr Documented by: Midazolam HCl (Midazolam 2 Mg/2 Ml Inj) 2 mg IV PREOP NR Stop: 02/21/21 23:59 Last Admin: 02/21/21 12:05 Dose: 2 mg Documented by: Ondansetron HCl (Ondansetron 4 Mg/2 Ml Inj) 4 mg IV ONCE PRN PRN Reason: Nausea And Vomiting - Brief post op/procedure progress note Date of procedure: 02/21/21 Pre-op diagnosis: right inguinal hernia, inguinal lymphadenopathy Post-op diagnosis: same Procedure: Robotic assisted right inguinal hernia with mesh Excisional lymph node biopsy - left inguinal Anesthesia: GETA, local, other (right ilioinguinal nerve block) Findings: 1. large indirect right inguinal hernia with adjacent mildly dilated small bowel 2. left inguinal lymphadenopathy Surgeon: SOHAIL SUH Estimated blood loss: minimal Pathology: list (left inguinal lymph node - sent fresh) Specimen disposition: to lab Condition: stable - Disposition Condition at discharge: Good Disposition: DC- TO HOME OR SELFCARE Short Stay Discharge Plan Activity: other (no heavy lifting) Diet: regular Wound: open to air Additional Instructions: see printed discharge instructions Follow up with: PRIMARY CARE, [Primary Care Provider] - 7 Days SOHAIL SUH DO [Staff Physician] - 14 Days Prescriptions: Ibuprofen [Motrin 800 MG tab] 800 mg PO Q8HR #30 tablet HYDROcodone/APAP 5-325 [[place] 5/325] 1 each PO Q6HR PRN #20 tablet PRN Reason: Pain , Severe (7-10)
[2021-02-21 16:56] VITALS: BP 124/89
--- NOTE | 2021-02-21 21:32 | Post Anesthesia Evaluation ---
- Post Anesthesia Evaluation Patient Participated: Yes Airway Patent: Yes Stable Respiratory Function: Yes Nausea/Vomiting: No Temp > 96.8F: Yes Pain Manageable: Yes Adequeate Hydration: Yes Anesthesia Complications: No Block Receding Appropriately: Not Applicable Patient on Ventilator: No
== END 2021-02-21 16:45 | disposition home or self-care (01) ==
LOC: OR 09:59
PROVIDERS: ATTEND Surgery
DX: K40.90 Unilateral inguinal hernia, without obstruction or gangrene, not specified as recurrent (principal); I89.8 Other specified noninfective disorders of lymphatic vessels and lymph nodes; F17.210 Nicotine dependence, cigarettes, uncomplicated; Z79.899 Other long term (current) drug therapy; Z98.890 Other specified postprocedural states
CPT/HCPCS: 38531; 49650; 88305; 88341; 88342; C1781; J0690; J2250; J2370; J2405; J2704; J2710; J3010; J7120; S2900

== ENCOUNTER 2021-04-19 11:39 | Emergency (ER) | payer OTHER ==
[2021-04-19 12:51] LABS: Bilirubin,Urine NEG (Negative); Blood,Urine SM (Negative); Calcium Oxalate Crystals,Urine 3+; Color,Urine Yellow (Yellow); Mucus,Urine 3+ /HPF
--- NOTE | 2021-04-19 13:00 | Emergency Department Report ---
HPI - General Chief Complaint: Urogenital-Male Time Seen by Provider: 04/19/21 12:36 - HPI HPI: This is a 50-year-old male who presents to the emergency department with a complaint of generalized sweats and weight loss that has been going on for the past 1 to 2 months, since the patient had inguinal hernia repair here in early February. Over this time, patient also says that he has been having some nonspecific lightheadedness/dizziness. The patient also says last night the patient says that he went to use the bathroom and noticed some blood in his urine. He denies any chest pain, vision change, headache, numbness or paresthesias, shortness of breath, lower extremity swelling. Patient says that he has lost about 25 pounds over the past 2 months. He has a primary care physician but has not seen them regarding his symptoms. No recent travel or sick contacts at home. ED Past Medical Hx - Past Medical History Previous Medical History?: No Hx Hypertension: No - Surgical History Additional Surgical History: right hand/HERNIA - Social History Smoking Status: Current Some Day Smoker - Medications Home Medications: Home Medications Medication Instructions Recorded Confirmed Last Taken Type HYDROcodone/APAP 5-325 [[place] 1 each PO Q6HR PRN #20 tablet 02/21/21 Unknown Rx 5/325] Ibuprofen [Motrin 800 MG tab] 800 mg PO Q8HR #30 tablet 02/21/21 Unknown Rx ED Review of Systems ROS: Stated complaint: blood in urine Other details as noted in HPI Comment: All other systems reviewed and negative Constitutional: diaphoresis. denies: fever Eyes: denies: eye pain, vision change ENT: denies: ear pain, throat pain Respiratory: denies: cough, shortness of breath Cardiovascular: denies: chest pain, palpitations Gastrointestinal: denies: abdominal pain, vomiting Genitourinary: hematuria. denies: discharge Musculoskeletal: denies: back pain, arthralgia Skin: denies: rash, lesions Neurological: denies: headache, numbness, paresthesias Physical Exam - Physical Exam Vital Signs: Vital Signs 04/19/21 11:55 Temperature 98.5 F Pulse Rate 95 H Respiratory 20 Rate Blood Pressure 103/69 [Right] O2 Sat by Pulse 100 Oximetry Physical Exam: GENERAL: The patient is well-developed well-nourished. HENT: Normocephalic. Atraumatic. Patient has moist mucous membranes. EYES: Extraocular motions are intact. Pupils equal reactive to light bilaterally. NECK: Supple. Trachea is midline. CHEST/LUNGS: Clear to auscultation. There is no respiratory distress noted. HEART/CARDIOVASCULAR: Regular. There is no tachycardia. There is no murmur. ABDOMEN: Abdomen is soft, nontender. Patient has normal bowel sounds. There is no abdominal distention. SKIN: Skin is warm and dry. NEURO: The patient is awake, alert, and oriented. The patient is cooperative. The patient has no focal neurologic deficits. Normal speech. Cranial nerves II through XII grossly intact. MUSCULOSKELETAL: There is no tenderness or deformity. There is no limitation range of motion. ED Course Vital Signs 04/19/21 11:55 Temperature 98.5 F Pulse Rate 95 H Respiratory 20 Rate Blood Pressure 103/69 [Right] O2 Sat by Pulse 100 Oximetry ED Medical Decision Making - Lab Data Result diagrams: 04/19/21 12:59 04/19/21 12:59 Lab Results 04/19/21 04/19/21 04/19/21 Range/Units 12:59 12:59 12:59 WBC 4.3 L (4.5-11.0) K/mm3 RBC 3.23 L (3.65-5.03) M/mm3 Hgb 8.9 L (11.8-15.2) gm/dl Hct 27.3 L (35.5-45.6) % MCV 85 (84-94) fl MCH 28 (28-32) pg MCHC 33 (32-34) % RDW 15.8 H (13.2-15.2) % Plt Count 336 (140-440) K/mm3 Lymph % (Auto) 34.9 (13.4-35.0) % [place] % (Auto) 9.3 H (0.0-7.3) % Eos % (Auto) 0.2 (0.0-4.3) % Baso % (Auto) 0.8 (0.0-1.8) % Lymph # (Auto) 1.5 (1.2-5.4) K/mm3 [place] # (Auto) 0.4 (0.0-0.8) K/mm3 Eos # (Auto) 0.0 (0.0-0.4) K/mm3 Baso # (Auto) 0.0 (0.0-0.1) K/mm3 Seg Neutrophils % 54.8 (40.0-70.0) % Seg Neutrophils # 2.4 (1.8-7.7) K/mm3 Sodium 134 L (137-145) mmol/L Potassium 3.5 L (3.6-5.0) mmol/L Chloride 97.9 L (98-107) mmol/L Carbon Dioxide 27 (22-30) mmol/L Anion Gap 13 mmol/L BUN 10 (9-20) mg/dL Creatinine 0.6 L (0.8-1.3) mg/dL Estimated GFR > 60 ml/min BUN/Creatinine Ratio 17 % Glucose 116 H (75-100) mg/dL Calcium 8.7 (8.4-10.2) mg/dL Total Bilirubin 0.30 (0.1-1.2) mg/dL AST 18 (5-40) units/L ALT < 5 L (7-56) units/L Alkaline Phosphatase 89 (35-129) units/L Total Protein 7.8 (6.3-8.2) g/dL Albumin 3.1 L (3.9-5) g/dL Albumin/Globulin Ratio 0.7 % TSH 1.320 (0.270-4.200) mlU/mL Free T4 0.96 (0.76-1.46) ng/dL Urine Color (Yellow) Urine Turbidity (Clear) Urine pH (5.0-7.0) Ur Specific [place] (1.003-1.030) Urine Protein (Negative) mg/dL Urine Glucose (UA) (Negative) mg/dL Urine Ketones (Negative) mg/dL Urine Blood (Negative) Urine Nitrite (Negative) Urine Bilirubin (Negative) Urine Urobilinogen (<2.0) mg/dL Ur Leukocyte Esterase (Negative) Urine WBC (Auto) (0.0-6.0) /HPF Urine RBC (Auto) (0.0-6.0) /HPF Calcium Oxalate Crystal Urine Mucus /HPF 04/19/21 Range/Units Unknown WBC (4.5-11.0) K/mm3 RBC (3.65-5.03) M/mm3 Hgb (11.8-15.2) gm/dl Hct (35.5-45.6) % MCV (84-94) fl MCH (28-32) pg MCHC (32-34) % RDW (13.2-15.2) % Plt Count (140-440) K/mm3 Lymph % (Auto) (13.4-35.0) % [place] % (Auto) (0.0-7.3) % Eos % (Auto) (0.0-4.3) % Baso % (Auto) (0.0-1.8) % Lymph # (Auto) (1.2-5.4) K/mm3 [place] # (Auto) (0.0-0.8) K/mm3 Eos # (Auto) (0.0-0.4) K/mm3 Baso # (Auto) (0.0-0.1) K/mm3 Seg Neutrophils % (40.0-70.0) % Seg Neutrophils # (1.8-7.7) K/mm3 Sodium (137-145) mmol/L Potassium (3.6-5.0) mmol/L Chloride (98-107) mmol/L Carbon Dioxide (22-30) mmol/L Anion Gap mmol/L BUN (9-20) mg/dL Creatinine (0.8-1.3) mg/dL Estimated GFR ml/min BUN/Creatinine Ratio % Glucose (75-100) mg/dL Calcium (8.4-10.2) mg/dL Total Bilirubin (0.1-1.2) mg/dL AST (5-40) units/L ALT (7-56) units/L Alkaline Phosphatase (35-129) units/L Total Protein (6.3-8.2) g/dL Albumin (3.9-5) g/dL Albumin/Globulin Ratio % TSH (0.270-4.200) mlU/mL Free T4 (0.76-1.46) ng/dL Urine Color Yellow (Yellow) Urine Turbidity Slightly-cloudy (Clear) Urine pH 5.0 (5.0-7.0) Ur Specific [place] 1.024 (1.003-1.030) Urine Protein 30 mg/dl (Negative) mg/dL Urine Glucose (UA) Neg (Negative) mg/dL Urine Ketones Neg (Negative) mg/dL Urine Blood Sm (Negative) Urine Nitrite Neg (Negative) Urine Bilirubin Neg (Negative) Urine Urobilinogen 4.0 (<2.0) mg/dL Ur Leukocyte Esterase Neg (Negative) Urine WBC (Auto) < 1.0 (0.0-6.0) /HPF Urine RBC (Auto) 7.0 (0.0-6.0) /HPF Calcium Oxalate Crystal 3+ Urine Mucus 3+ /HPF - Medical Decision Making This patient presents to the emergency department with a complaint of one episode of hematuria from last night, and some chronic issues with sweating and recent weight loss. On examination he does not have any focal, motor or sensory deficits and his cranial nerves are intact. Heart and lung sounds are normal to auscultation and he does not appear in any respiratory or acute distress. Patient's labs are mostly unremarkable including CBC, metabolic panel, and normal thyroid function. There is some anemia with hemoglobin of 8.9, but does not require a transfusion at this time. There is only a very small amount of hematuria seen on the urinalysis with 7 RBCs. Vital signs have been reassuring throughout his ED course including being afebrile. We discussed increased oral rehydration. We discussed adding some extra calories or nutrition such as Ensure. The patient says that he has a primary care physician but has not yet followed up with them regarding his symptoms, so the patient has been instructed to see his PCP in the next few days. He has been having given an outpatient referral for urology for the hematuria. He will return to the emergency department with any worsening of his symptoms or with any acute distress. Critical Care Time: No Critical care attestation.: If time is entered above; I have spent that time in minutes in the direct care of this critically ill patient, excluding procedure time. ED Disposition Clinical Impression: Weight loss, unintentional Hematuria Qualifiers: Hematuria type: unspecified type Qualified Code(s): R31.9 - Hematuria, unspecified Disposition: DC- TO HOME OR SELFCARE Is pt being admited?: No Condition: Stable Instructions: Hematuria, Adult Additional Instructions: Please follow-up with your primary care physician in the next few days. I have given you a referral for a local urologist, Dr. Maynard, to follow-up regarding the blood seen in your urine. Return to the emergency department with any worsening of your symptoms, new or concerning symptoms not addressed during this current emergency department visit, or with any acute distress. Referrals: TAWANA MAYNARD MD [Staff Physician] - 3-5 Days PCP, Your [Other] - 3-5 Days Time of Disposition: 15:03
[2021-04-19] MEDS ORDERED: SODIUM CHLORIDE 0.9% 1000 ML 1,000 ML IV ONE (13:05)
[2021-04-19 13:27] LABS: WBC,Urine < 1.0 /HPF (0.0-6.0)
[2021-04-19 13:48] LABS: Albumin 3.1 g/dL (3.9-5); Blood Urea Nitrogen 10 mg/dL (9-20); Calcium 8.7 mg/dL (8.4-10.2); Hemolysis Index 2
[2021-04-19 13:50] LABS: Alanine Aminotransferase < 5 units/L (7-56); BUN/Creatinine Ratio 17
[2021-04-19 13:51] LABS: Basophils % (Auto) 0.8 % (0.0-1.8); Eosinophils % (Auto) 0.2 % (0.0-4.3); Hematocrit 27.3 % (35.5-45.6); Hemoglobin 8.9 gm/dl (11.8-15.2); Lymphocytes # (Auto) 1.5 K/mm3 (1.2-5.4); Lymphocytes % (Auto) 34.9 % (13.4-35.0); Mean Corpuscular HGB Conc 33 % (32-34); Mean Corpuscular Volume 85 fl (84-94); Monocytes # (Auto) 0.4 K/mm3 (0.0-0.8); Monocytes % (Auto) 9.3 % (0.0-7.3); Platelet Count 336 K/mm3 (140-440); Red Blood Count 3.23 M/mm3 (3.65-5.03); Red Cell Distribution Width 15.8 % (13.2-15.2)
[2021-04-19 13:57] LABS: Free T4 (Free Thyroxine) 0.96 ng/dL (0.76-1.46)
[2021-04-19 16:38] VITALS: BP 103/84
== END 2021-04-19 15:00 | disposition home or self-care (01) ==
LOC: ED 11:39
DX: R31.9 Hematuria, unspecified (principal); R63.4 Abnormal weight loss; F17.200 Nicotine dependence, unspecified, uncomplicated; Z68.23 Body mass index [BMI] 23.0-23.9, adult; Z98.890 Other specified postprocedural states; Z79.1 Long term (current) use of non-steroidal anti-inflammatories (NSAID); Z79.899 Other long term (current) drug therapy
CPT/HCPCS: 36415; 80053; 81001; 84439; 84443; 85025; 96360

== ENCOUNTER 2021-04-23 19:13 | Emergency (ER) | payer OTHER ==
[2021-04-23 21:16] LABS: Basophils % (Auto) 0.5 % (0.0-1.8); Eosinophils % (Auto) 0.4 % (0.0-4.3); Hematocrit 26.4 % (35.5-45.6); Hemoglobin 8.9 gm/dl (11.8-15.2); Lymphocytes # (Auto) 2.2 K/mm3 (1.2-5.4); Lymphocytes % (Auto) 45.5 % (13.4-35.0); Mean Corpuscular HGB Conc 34 % (32-34); Mean Corpuscular Volume 84 fl (84-94); Monocytes # (Auto) 0.4 K/mm3 (0.0-0.8); Monocytes % (Auto) 8.7 % (0.0-7.3); Platelet Count 357 K/mm3 (140-440); Red Blood Count 3.16 M/mm3 (3.65-5.03); Red Cell Distribution Width 16.4 % (13.2-15.2)
[2021-04-23 21:35] LABS: Blood Urea Nitrogen 9 mg/dL (9-20); Calcium 8.6 mg/dL (8.4-10.2); Hemolysis Index 4
[2021-04-23 21:38] LABS: BUN/Creatinine Ratio 13
== END 2021-04-24 03:00 | disposition left against medical advice (07) ==
LOC: ED 19:13
DX: R10.9 Unspecified abdominal pain (principal); Z98.890 Other specified postprocedural states; Z53.21 Procedure and treatment not carried out due to patient leaving prior to being seen by health care provider
CPT/HCPCS: 36415; 80048; 85025

== ENCOUNTER 2021-04-25 11:25 | Observation (INO) | payer OTHER ==
[2021-04-25] MEDS ORDERED: ONDANSETRON 4 MG/2 ML INJ IV ONE (12:05)
[2021-04-25] MEDS ORDERED: MORPHINE 4 MG/1 ML INJ IV ONE (12:05)
[2021-04-25] MEDS ORDERED: MECLIZINE 25 MG TAB PO ONE (12:05)
[2021-04-25] MEDS ORDERED: SODIUM CHLORIDE 0.9% 1000 ML 1,000 ML IV ONE (12:05)
[2021-04-25 12:31] LABS: Basophils % (Auto) 0.6 % (0.0-1.8); Eosinophils % (Auto) 0.3 % (0.0-4.3); Hematocrit 26.7 % (35.5-45.6); Hemoglobin 8.9 gm/dl (11.8-15.2); Lymphocytes # (Auto) 1.7 K/mm3 (1.2-5.4); Lymphocytes % (Auto) 41.3 % (13.4-35.0); Mean Corpuscular HGB Conc 33 % (32-34); Mean Corpuscular Volume 85 fl (84-94); Monocytes # (Auto) 0.4 K/mm3 (0.0-0.8); Monocytes % (Auto) 8.8 % (0.0-7.3); Platelet Count 328 K/mm3 (140-440); Red Blood Count 3.16 M/mm3 (3.65-5.03); Red Cell Distribution Width 16.6 % (13.2-15.2)
[2021-04-25 12:38] LABS: Amorphous Crystals,Urine Few; Bilirubin,Urine NEG (Negative); Blood,Urine NEG (Negative); Calcium Oxalate Crystals,Urine FEW; Color,Urine Yellow (Yellow); Mucus,Urine FEW /HPF; Protein,Urine <15 mg/dL mg/dL (Negative); Urobilinogen,Urine < 2.0 mg/dL (<2.0)
[2021-04-25 12:42] LABS: Amphetamine Screen,Urine Negative; Benzodiazepines Screen,Urine Negative; Cocaine Screen,Urine Negative; Methadone Screen,Urine Negative; Opiate Screen,Urine Negative
[2021-04-25 12:55] LABS: Cannabinoid Screen,Urine PRESUMPTIVE POSITIVE
[2021-04-25 12:56] LABS: Albumin 2.9 g/dL (3.9-5); Blood Urea Nitrogen 8 mg/dL (9-20); Calcium 8.4 mg/dL (8.4-10.2); Hemolysis Index 2
[2021-04-25 12:59] LABS: Alanine Aminotransferase < 5 units/L (7-56); BUN/Creatinine Ratio 13
--- NOTE | 2021-04-25 13:44 | Emergency Department Report ---
ED Abdominal Pain HPI - General Chief Complaint: Abdominal Pain Stated Complaint: DIZZINESS / ABDOMINAL PAIN Time Seen by Provider: 04/25/21 11:51 Source: patient Mode of arrival: Wheelchair Limitations: No Limitations - History of Present Illness Initial Comments: This is a 50-year-old male nontoxic, well nourished in appearance, no acute signs of distress presents to the ED with 2 complaints: 1) c/o of nausea and abdominal pain 2 days . Patient denies any vomiting. Patient describes abdominal pain as cramping and aching with level of 8/10 pr imarily to right lower abdomen area. Patient denies chest pain, short of breath, fever, hemoptysis, blood in stool, chills, headache, stiff neck, numbness or tingling. Patient denies any diarrhea or constipation. Denies any blood in stool. Patient denies any recent travels. 2) c/o of intermittent dizziness x 2 weeks but last episode of dizziness was yesterday. Currently denies any dizziness today. Patient denies any headache or head trauma. Patient stated the dizziness is worsened with position change. Denies any visual changes or blurry vision. MD Complaint: abdominal pain -: days(s) Location: diffuse Radiation: none Migration to: no migration Severity: mild Severity scale (0 -10): 3 Quality: cramping, aching Consistency: constant Improves With: nothing Worsens With: nothing Associated Symptoms: nausea. denies: vomiting, diarrhea, fever, chills, constipation, dysuria, hematemesis, hematochezia, melena, hematuria, anorexia, syncope - Related Data Previous Rx's Medication Instructions Recorded Last Taken Type HYDROcodone/APAP 5-325 [[place] 1 each PO Q6HR PRN #20 tablet 02/21/21 Unknown Rx 5/325] Ibuprofen [Motrin 800 MG tab] 800 mg PO Q8HR #30 tablet 02/21/21 Unknown Rx Allergies Allergy/AdvReac Type Severity Reaction Status Date / Time No Known Allergies Allergy Verified 04/25/21 11:27 ED Review of Systems ROS: Stated complaint: DIZZINESS / ABDOMINAL PAIN Other details as noted in HPI Comment: All other systems reviewed and negative Constitutional: denies: chills, fever Eyes: denies: eye pain, eye discharge, vision change ENT: denies: ear pain, throat pain Respiratory: denies: cough, shortness of breath, wheezing Cardiovascular: denies: chest pain, palpitations Endocrine: no symptoms reported Gastrointestinal: abdominal pain, nausea. denies: vomiting, diarrhea, constipation, hematemesis, melena, hematochezia Genitourinary: denies: urgency, dysuria Musculoskeletal: denies: back pain, joint swelling, arthralgia Skin: denies: rash, lesions Neurological: vertigo. denies: headache, weakness, numbness, paresthesias, confusion, abnormal gait Psychiatric: denies: anxiety, depression Hematological/Lymphatic: denies: easy bleeding, easy bruising ED Past Medical Hx - Past Medical History Previous Medical History?: No Hx Hypertension: No - Surgical History Additional Surgical History: right hand/HERNIA - Social History Smoking Status: Current Every Day Smoker Substance Use Type: None - Medications Home Medications: Home Medications Medication Instructions Recorded Confirmed Last Taken Type HYDROcodone/APAP 5-325 [[place] 1 each PO Q6HR PRN #20 tablet 02/21/21 Unknown Rx 5/325] Ibuprofen [Motrin 800 MG tab] 800 mg PO Q8HR #30 tablet 02/21/21 Unknown Rx ED Physical Exam - General Limitations: No Limitations General appearance: alert, in no apparent distress - Head Head exam: Present: atraumatic, normocephalic - Eye Eye exam: Present: normal appearance, PERRL, EOMI - ENT ENT exam: Present: normal exam, normal orophraynx - Neck Neck exam: Present: normal inspection, full ROM, other (Negative carotid bruit). Absent: tenderness, meningismus, lymphadenopathy - Respiratory Respiratory exam: Present: normal lung sounds bilaterally. Absent: respiratory distress, wheezes, rales, rhonchi, stridor, chest wall tenderness, accessory muscle use, decreased breath sounds, prolonged expiratory - Cardiovascular Cardiovascular Exam: Present: regular rate, normal rhythm, normal heart sounds. Absent: bradycardia, tachycardia, irregular rhythm, systolic murmur, diastolic murmur, rubs, gallop - GI/Abdominal GI/Abdominal exam: Present: soft, tenderness (diffuse), normal bowel sounds. Absent: distended, guarding, rebound, rigid, diminished bowel sounds - Extremities Exam Extremities exam: Present: normal inspection, full ROM, normal capillary refill. Absent: tenderness - Back Exam Back exam: Present: normal inspection, full ROM. Absent: tenderness, CVA tenderness (R), CVA tenderness (L), muscle spasm, paraspinal tenderness, vertebral tenderness, rash noted - Neurological Exam Neurological exam: Present: alert, oriented X3, normal gait - Expanded Neurological Exam Expanded Patient oriented to: Present: person, place, time Cranial nerves: EOM's Intact: Normal, Facial Sensation: Normal Cerebellar function: Finger to Nose: Normal Upper motor neuron: Pronator Drift: Normal, Sensory Extinction: Normal Motor strength exam: RUE: 5, LUE: 5, RLE: 5, LLE: 5 Best Eye Response (Letty): (4) open spontaneously Best Motor Response (Letty): (6) obeys commands Best Verbal Response (Letty): (5) oriented [place] Total: 15 - Psychiatric Psychiatric exam: Present: normal affect, normal mood - Skin Skin exam: Present: warm, dry, intact, normal color. Absent: rash ED Course Vital Signs 04/25/21 04/25/21 04/25/21 11:29 12:18 13:24 Temperature 97.9 F Pulse Rate 61 Pulse Rate [ 53 L Lying] Respiratory 18 16 Rate Blood Pressure 117/83 Blood Pressure 120/85 [Lying] O2 Sat by Pulse 100 Oximetry - Reevaluation(s) Reevaluation #1: 04/25/21 13:49 Patient is speaking in full sentences with no signs of distress noted. - Consultations Consultation #1: 04/25/21 14:59 Patient has been consulted with Shane Pham about patient history, physical exam, and labs/imaging results and agrees for possible admission with surgery consult. Consultation #2: 04/25/21 15:32 Patient has been consulted with Dr. Giraldo (general surgery) about patient history, physical exam, and labs/CT results and patient to be admitted for MRCP and possible abdominal tap. Consultation #3: 04/25/21 15:37 Patient has been consulted with Dr. Cavazos about patient history, physical exam, and labs/CT results and accepts patient to services. ED Medical Decision Making - Lab Data Result diagrams: 04/25/21 12:11 04/25/21 12:11 Lab Results 04/25/21 04/25/21 04/25/21 Range/Units 11:40 12:11 12:11 WBC 4.1 L (4.5-11.0) K/mm3 RBC 3.16 L (3.65-5.03) M/mm3 Hgb 8.9 L (11.8-15.2) gm/dl Hct 26.7 L (35.5-45.6) % MCV 85 (84-94) fl MCH 28 (28-32) pg MCHC 33 (32-34) % RDW 16.6 H (13.2-15.2) % Plt Count 328 (140-440) K/mm3 Lymph % (Auto) 41.3 H (13.4-35.0) % [place] % (Auto) 8.8 H (0.0-7.3) % Eos % (Auto) 0.3 (0.0-4.3) % Baso % (Auto) 0.6 (0.0-1.8) % Lymph # (Auto) 1.7 (1.2-5.4) K/mm3 [place] # (Auto) 0.4 (0.0-0.8) K/mm3 Eos # (Auto) 0.0 (0.0-0.4) K/mm3 Baso # (Auto) 0.0 (0.0-0.1) K/mm3 Seg Neutrophils % 49.0 (40.0-70.0) % Seg Neutrophils # 2.0 (1.8-7.7) K/mm3 Sodium 138 (137-145) mmol/L Potassium 4.1 (3.6-5.0) mmol/L Chloride 102.5 (98-107) mmol/L Carbon Dioxide 30 (22-30) mmol/L Anion Gap 10 mmol/L BUN 8 L (9-20) mg/dL Creatinine 0.6 L (0.8-1.3) mg/dL Estimated GFR > 60 ml/min BUN/Creatinine Ratio 13 % Glucose 83 (75-100) mg/dL Calcium 8.4 (8.4-10.2) mg/dL Total Bilirubin 0.20 (0.1-1.2) mg/dL AST 18 (5-40) units/L ALT < 5 L (7-56) units/L Alkaline Phosphatase 86 (35-129) units/L Total Protein 7.0 (6.3-8.2) g/dL Albumin 2.9 L (3.9-5) g/dL Albumin/Globulin Ratio 0.7 % Lipase (13-60) units/L Urine Color Yellow (Yellow) Urine Turbidity Slightly-cloudy (Clear) Urine pH 6.0 (5.0-7.0) Ur Specific [place] 1.011 (1.003-1.030) Urine Protein <15 mg/dl (Negative) mg/dL Urine Glucose (UA) Neg (Negative) mg/dL Urine Ketones Neg (Negative) mg/dL Urine Blood Neg (Negative) Urine Nitrite Neg (Negative) Urine Bilirubin Neg (Negative) Urine Urobilinogen < 2.0 (<2.0) mg/dL Ur Leukocyte Esterase Neg (Negative) Urine WBC (Auto) 1.0 (0.0-6.0) /HPF Urine RBC (Auto) 2.0 (0.0-6.0) /HPF U Epithel Cells (Auto) < 1.0 (0-13.0) /HPF Calcium Oxalate Crystal Few Amorphous Crystals Few Urine Mucus Few /HPF Urine Opiates Screen Urine Methadone Screen Ur Barbiturates Screen Ur Phencyclidine Scrn Ur Amphetamines Screen U Benzodiazepines Scrn Urine Cocaine Screen U Marijuana (THC) Screen Drugs of Abuse Note Plasma/Serum Alcohol (0-0.07) % 04/25/21 04/25/21 04/25/21 Range/Units 12:11 12:11 12:13 WBC (4.5-11.0) K/mm3 RBC (3.65-5.03) M/mm3 Hgb (11.8-15.2) gm/dl Hct (35.5-45.6) % MCV (84-94) fl MCH (28-32) pg MCHC (32-34) % RDW (13.2-15.2) % Plt Count (140-440) K/mm3 Lymph % (Auto) (13.4-35.0) % [place] % (Auto) (0.0-7.3) % Eos % (Auto) (0.0-4.3) % Baso % (Auto) (0.0-1.8) % Lymph # (Auto) (1.2-5.4) K/mm3 [place] # (Auto) (0.0-0.8) K/mm3 Eos # (Auto) (0.0-0.4) K/mm3 Baso # (Auto) (0.0-0.1) K/mm3 Seg Neutrophils % (40.0-70.0) % Seg Neutrophils # (1.8-7.7) K/mm3 Sodium (137-145) mmol/L Potassium (3.6-5.0) mmol/L Chloride (98-107) mmol/L Carbon Dioxide (22-30) mmol/L Anion Gap mmol/L BUN (9-20) mg/dL Creatinine (0.8-1.3) mg/dL Estimated GFR ml/min BUN/Creatinine Ratio % Glucose (75-100) mg/dL Calcium (8.4-10.2) mg/dL Total Bilirubin (0.1-1.2) mg/dL AST (5-40) units/L ALT (7-56) units/L Alkaline Phosphatase (35-129) units/L Total Protein (6.3-8.2) g/dL Albumin (3.9-5) g/dL Albumin/Globulin Ratio % Lipase 132 H (13-60) units/L Urine Color (Yellow) Urine Turbidity (Clear) Urine pH (5.0-7.0) Ur Specific [place] (1.003-1.030) Urine Protein (Negative) mg/dL Urine Glucose (UA) (Negative) mg/dL Urine Ketones (Negative) mg/dL Urine Blood (Negative) Urine Nitrite (Negative) Urine Bilirubin (Negative) Urine Urobilinogen (<2.0) mg/dL Ur Leukocyte Esterase (Negative) Urine WBC (Auto) (0.0-6.0) /HPF Urine RBC (Auto) (0.0-6.0) /HPF U Epithel Cells (Auto) (0-13.0) /HPF Calcium Oxalate Crystal Amorphous Crystals Urine Mucus /HPF Urine Opiates Screen Negative Urine Methadone Screen Negative Ur Barbiturates Screen Negative Ur Phencyclidine Scrn Negative Ur Amphetamines Screen Negative U Benzodiazepines Scrn Negative Urine Cocaine Screen Negative U Marijuana (THC) Screen Presumptive positive Drugs of Abuse Note Disclamer Plasma/Serum Alcohol < 0.01 (0-0.07) % - Radiology Data [facility] [address] [place] [address] Cat Scan Report Signed Patient: KYE HYMAN JR MR#: [id number] : 1970 Acct:[id number] Age/Sex: 50 / M ADM Date: 04/25/21 Loc: ED Attending Dr: Ordering Physician: LENCHO STEVENS NP Date of Service: 04/25/21 Procedure(s): CT abdomen pelvis w con Accession Number(s): [id number] cc: LENCHO STEVENS NP CT ABDOMEN AND PELVIS WITH CONTRAST INDICATION / CLINICAL INFORMATION: RLQ abd pain with nausea--PO AND IV CONTRAST 100 ML OMNI 300 . TECHNIQUE: Axial CT images were obtained through the abdomen and pelvis after 100 mL's of Omnipaque [address] scans at this location are performed using CT dose reduction for ALARA by means of automated exposure control. COMPARISON: 01/02/2021 FINDINGS: LOWER CHEST: There is scattered bibasilar atelectasis versus scarring. AORTA / ARTERIES: There is minimal calcific atherosclerosis. IVC / VEINS: No significant abnormality. LYMPH NODES: There is unchanged bulky periaortic and pericaval adenopathy. There is also unchanged bilateral inguinal adenopathy COLON: No significant abnormality. APPENDIX: No significant abnormality. STOMACH / SMALL BOWEL: No significant abnormality. PERITONEUM: There is mild to moderate free fluid throughout the peritoneum, which extends into the presacral space of the pelvis. No free air. No fluid collection. LIVER: No significant abnormality. GALLBLADDER: No sign ificant abnormality. BILE DUCTS: No significant abnormality. PANCREAS: There is slight increased prominence of the pancreatic duct without definitive mass SPLEEN: No significant abnormality. ADRENALS: No significant abnormality. RIGHT KIDNEY / URETER: No significant abnormality. LEFT KIDNEY / URETER: No significant abnormality. URINARY BLADDER: No significant abnormality. REPRODUCTIVE ORGANS: No significant abnormality. SKELETAL SYSTEM: No significant abnormality. ADDITIONAL FINDINGS: None. IMPRESSION: 1. Mild to moderate free fluid throughout the abdomen most pronounced within the pelvis. This is of unknown etiology. 2. Redemonstrated bulky retroperitoneal and inguinal adenopathy, not significantly change from prior CT. Differential remains reactive adenopathy versus metastatic adenopathy versus lymphoproliferative disorder/neoplasm. 3. Slight increased prominence of pancreatic duct without definitive mass, correlate for pancreatic disease. Signer Name: Jesus López DO Signed: 04/25/2021 2:49 PM Workstation Name: [id number] Transcribed By: MANUEL Dictated By: JESUS LÓPEZ DO Electronically Authenticated By: JESUS LÓPEZ DO Signed Date/Time: 04/25/21 1449 DD/ 1428 TD/TT: - Medical Decision Making 42-year-old male that presents with moderate pelvic fluid with pancreatic mass. Patient stable and was examined by me. Patient consulted with surgery and admitted with hospitalist. Currently patient pain is under control. No nausea vomiting noted on exam currently. Vital signs are stable. At time of adm ission, the patient does not seem toxic or ill in appearance. No acute signs of distress noted. Patient agrees to admission treatment plan of care. No further questions noted by the patient. Critical care attestation.: If time is entered above; I have spent that time in minutes in the direct care of this critically ill patient, excluding procedure time. ED Disposition Clinical Impression: Pancreatic mass, Free fluid in pelvis Disposition: OP ADMIT IP TO THIS HOSP Is pt being admited?: Yes Condition: Stable
--- NOTE | 2021-04-25 14:53 | Cat Scan Report ---
CT ABDOMEN AND PELVIS WITH CONTRAST INDICATION / CLINICAL INFORMATION: RLQ abd pain with nausea--PO AND IV CONTRAST 100 ML OMNI 300 . TECHNIQUE: Axial CT images were obtained through the abdomen and pelvis after 100 mL's of Omnipaque [address] scans at this location are performed using CT dose reduction for ALARA by kirstie núñez of automated exposure control. COMPARISON: 01/02/2021 FINDINGS: LOWER CHEST: There is scattered bibasilar atelectasis versus scarring. AORTA / ARTERIES: There is minimal calcific atherosclerosis. IVC / VEINS: No significant abnormality. LYMPH NODES: There is unchanged bulky periaortic and pericaval adenopathy. There is also unchanged bi lateral inguinal adenopathy COLON: No significant abnormality. APPENDIX: No significant abnormality. STOMACH / SMALL BOWEL: No significant abnormality. PERITONEUM: There is mild to moderate free fluid throughout the peritoneum, which extends into the pr esacral space of the pelvis. No free air. No fluid collection. LIVER: No significant abnormality. GALLBLADDER: No significant abnormality. BILE DUCTS: No significant abnormality. PANCREAS: There is slight increased prominence of the pancreatic duct without definitive mass SPLEEN: No significant abnormality. ADRENALS: No significant abnormality. RIGHT KIDNEY / URETER: No significant abnormality. LEFT KIDNEY / URETER: No significant abnormality. URINARY BLADDER: No significant abnormality. REPRODUCTIVE ORGANS: No significant abnormality. SKELETAL SYSTEM: No significant abnormality. ADDITIONAL FINDINGS: None. IMPRESSION: 1. Mild to moderate free fluid throughout the abdomen most pronounced within the pelvis. This is of u nknown etiology. 2. Redemonstrated bulky retroperitoneal and inguinal adenopathy, not significantly change from prior CT. Differential remains reactive adenopathy versus metastatic adenopathy versus lymphoproliferative disorder/neoplasm. 3. Slight increased prominence of pancreatic duct without definitive mass, correlate for pancreatic d isease. Signer Name: Jesus Donald DO Signed: 04/25/2021 2:49 PM Workstation Name: [email or web address]
--- NOTE | 2021-04-25 15:37 | History and Physical Report ---
History of Present Illness Chief complaint: My stomach hurts History of present illness: 50 YO Male with Nicotine Dependence, Malnutritioin, HTN presents to ED for evaluation. Patient reports "my stomach hurts". Patient states that he has experienced abdominal pain, nausea, abdominal cramping over the past 2 days with worsening symptoms over the same timeframe. Patient also complains of dizziness over the same timeframe. Patient denies decreased oral intake. EMS notified and upon arrival the patient was found to be in distress and subsequently transported to [facility] for further care and evaluation of the aforementioned symptoms. The patient was seen and evaluated in the emergency department. All lab and imaging studies reviewed. Patient with CT scan of the abdomen and pelvis and was found to have free peritoneal fluid, as well as malnutrition. Surgical team consulted. Patient placed in observation status and admitted to surgical floor. Patient denies fever, chills, chest pain, palpitation, product sena cough, skin rash, recent ill contacts, trauma, ingestion of food/water from new or different sources, bright red blood per rectum, or known exposure to COVID-19. No prior admission for review. All medication listed at time of admission has been reconciled. Past History Past Medical History: hypertension, other (See HPI) Past Surgical History: hernia repair, Other (Right hand surgery) Social history: single, smoking. denies: alcohol abuse, prescription drug abuse Family history: hypertension Medications and Allergies Allergies Allergy/AdvReac Type Severity Reaction Status Date / Time No Known Allergies Allergy Verified 04/25/21 11:27 Home Medications Medication Instructions Recorded Confirmed Last Taken Type HYDROcodone/APAP 5-325 [[place] 1 each PO Q6HR PRN #20 tablet 02/21/21 Unknown Rx 5/325] Ibuprofen [Motrin 800 MG tab] 800 mg PO Q8HR #30 tablet 02/21/21 Unknown Rx Review of Systems Constitutional: no weight loss, no fever, no chills, no sweats Ears, nose, mouth and throat: no ear pain, no ear discharge, no tinnitis, no decreased hearing, no nasal congestion, no sinus pressure Cardiovascular: no chest pain, no orthopnea, no palpitations, no syncope, no lightheadedness Respiratory: no cough, no hemoptysis, no shortness of breath, no dyspnea on exertion Gastrointestinal: abdominal pain, nausea, no vomiting, no diarrhea, no coffee ground emesis, no hematochezia, no early satiety, no heartburn, no indigestion Genitourinary Male: no hematuria, no flank pain, no discharge, no urinary freque ncy, no urinary hesitancy Rectal: no pain, no incontinence, no bleeding Musculoskeletal: no neck stiffness, no neck pain, no shooting arm pain, no arm numbness/tingling, no low back pain, no shooting leg pain, no leg numbness/tingling Integumentary: no rash, no pruritis, no redness, no sores, no wounds, no boils Neurological: no head injury, no transient paralysis, no parathesias, no numbness, no seizures, no tremors Psychiatric: no anxiety, no memory loss, no change in sleep habits, no disorientation Endocrine: no cold intolerance, no heat intolerance, no polyphagia, no excessive thirst, no polydipsia Hematologic/Lymphatic: no easy bruising, no easy bleeding Allergic/Immunologic: no urticaria Exam - Constitutional Vitals: Temp Pulse Resp BP Pulse Ox 97.9 F 53 L 16 120/85 100 04/25/21 11:29 04/25/21 13:24 04/25/21 12:18 04/25/21 13:24 04/25/21 11:29 General appearance: Present: mild distress, cachectic - EENT Eyes: Present: PERRL ENT: hearing intact, clear oral mucosa - Neck Neck: Present: supple, normal ROM - Respiratory Respiratory effort: normal Respiratory: bilateral: CTA - Cardiovascular Heart Sounds: Present: S1 & S2. Absent: rub, click - Extremities Extremities: pulses symmetrical, No edema Peripheral Pulses: within normal limits - Abdominal General gastrointestinal: Present: soft, tender, non-distended, hypoactive bowel sounds Localized gastrointestinal: tender: epigastric periumbilical Male genitourinary: Present: normal - Integumentary Integumentary: Present: clear, warm, dry - Musculoskeletal Musculoskeletal: gait normal, strength equal bilaterally - Psychiatric Psychiatric: appropriate mood/affect, intact judgment & insight - Neurologic Neurologic: CNII-XII intact, moves all extremities Results - Labs CBC & Chem 7: 04/25/21 12:11 04/25/21 12:11 Labs: Abnormal lab results 04/25/21 04/25/21 04/25/21 Range/Units 12:11 12:11 12:11 WBC 4.1 L (4.5-11.0) K/mm3 RBC 3.16 L (3.65-5.03) M/mm3 Hgb 8.9 L (11.8-15.2) gm/dl Hct 26.7 L (35.5-45.6) % RDW 16.6 H (13.2-15.2) % Lymph % (Auto) 41.3 H (13.4-35.0) % [place] % (Auto) 8.8 H (0.0-7.3) % BUN 8 L (9-20) mg/dL Creatinine 0.6 L (0.8-1.3) mg/dL ALT < 5 L (7-56) units/L Albumin 2.9 L (3.9-5) g/dL Lipase 132 H (13-60) units/L Assessment and Plan - Patient Problems (1) Abdominal pain Status: Acute Qualifiers: Abdominal location: lower abdomen, unspecified Qualified Code(s): R10.30 - Lower abdominal pain, unspecified Plan to address problem: CT scan abdomen and pelvis, serial abdominal exam, surgery team consulted, bowel rest, IV fluid resuscitation therapy, supportive care, pain control. (2) Malnutrition Status: Acute Qualifiers: Malnutrition type: protein-calorie malnutrition Plan to address problem: Increase protein intake, dietary supplementation, supportive care (3) Free fluid in pelvis Status: Acute Plan to address problem: CT scan abdomen and pelvis, surgical team consulted, serial abdominal exam, supportive care. (4) Hypertension Status: Acute Qualifiers: Hypertension type: primary hypertension Qualified Code(s): I10 - Essential (primary) hypertension Plan to address problem: Monitor blood pressure every shift, continue medical management (5) DVT prophylaxis Status: Acute Plan to address problem: SCD to bilateral lower extremities while in bed, patient is ambulatory
[2021-04-25] MEDS ORDERED: HYDROmorphone 1 MG/1 ML INJ IV PRN (16:00)
[2021-04-25] MEDS ORDERED: ALBUTEROL 2.5 MG/3 ML NEBU IH PRN (16:00)
[2021-04-25] MEDS ORDERED: ONDANSETRON 4 MG/2 ML INJ IV PRN (16:00)
[2021-04-25] MEDS ORDERED: oxyCODONE /ACETAMINOPHEN 5-325MG TAB PO PRN (16:00)
[2021-04-25] MEDS ORDERED: ACETAMINOPHEN 325 MG TAB PO PRN (16:00)
[2021-04-25] MEDS: SODIUM CHLORIDE 0.9% 1000 ML 1,000 ML IV SCH (21:59)
[2021-04-26] MEDS: SODIUM CHLORIDE 0.9% 1000 ML 1,000 ML IV SCH (05:55)
[2021-04-26 05:57] LABS: Eosinophils % (Auto) 0.7 % (0.0-4.3); Hematocrit 27.3 % (35.5-45.6); Lymphocytes # (Auto) 2.1 K/mm3 (1.2-5.4); Lymphocytes % (Auto) 43.8 % (13.4-35.0); Mean Corpuscular HGB Conc 33 % (32-34); Mean Corpuscular Volume 85 fl (84-94); Monocytes # (Auto) 0.4 K/mm3 (0.0-0.8); Monocytes % (Auto) 7.9 % (0.0-7.3); Platelet Count 329 K/mm3 (140-440); Red Blood Count 3.22 M/mm3 (3.65-5.03); Red Cell Distribution Width 16.9 % (13.2-15.2)
[2021-04-26 06:03] LABS: Albumin 2.8 g/dL (3.9-5); Blood Urea Nitrogen 6 mg/dL (9-20); Calcium 8.4 mg/dL (8.4-10.2); Hemolysis Index 0
[2021-04-26 06:04] LABS: Alanine Aminotransferase < 5 units/L (7-56); BUN/Creatinine Ratio 9
--- NOTE | 2021-04-26 10:35 | Progress Note ---
Assessment and Plan Assessment and plan: 50 YO Male with Nicotine Dependence, Malnutritioin, HTN presents to ED for evaluation. Patient reports "my stomach hurts". Patient states that he has experienced abdominal pain, nausea, abdominal cramping over the past 2 days with worsening symptoms over the same timeframe. Patient also complains of dizziness over the same timeframe. Patient denies decreased oral intake. EMS notified and upon arrival the patient was found to be in distress and subsequently transported to [facility] for further care and evaluation of the aforementioned symptoms. The patient was seen and evaluated in the emergency department. All lab and imaging studies reviewed. Patient with CT scan of the abdomen and pelvis and was found to have free peritoneal fluid, as well as malnutrition. Surgical team consulted. Patient placed in observation status and admitted to surgical floor. Patient denies fever, chills, chest pain, palpitation, productive cough, skin rash, recent ill contacts, trauma, ingestion of food/water from new or different sources, bright red blood per rectum, or known exposure to COVID-19. No prior admission for review. All medication listed at time of admission has been reconciled. 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 He does endorse to photophobia and phonophobia. Surgery evaluation ongoing awaiting Paracentesis for noted Ascites. Per surgical documentation patient had prior inguinal lymph node biopsy which was negative for malignancy x2. We will proceed with hematology evaluation. I will also obtain imaging studies considering headache nausea. Dietitian will be consulted due to severe weight loss and malnutrition. (1) Abdominal pain with ascites Status: Acute Qualifiers: Abdominal location: lower abdomen, unspecified Qualified Code(s): R10.30 - Lower abdominal pain, unspecified Plan to address problem: CT scan abdomen and pelvis, serial abdominal exam, surgery team consulted, bowel rest, IV fluid resuscitation therapy, supportive care, pain control. (2) Malnutrition severe protein calorie malnutrition Status: Acute Qualifiers: Malnutrition type: protein-calorie malnutrition Plan to address problem: Increase protein intake, dietary supplementation, supportive care (3) Free fluid in pelvis-retroperitoneal and inguinal lymphadenopathy Status: Acute Plan to address problem: CT scan abdomen and pelvis, surgical team consulted, serial abdominal exam, supportive care. (4) migraine headache (5) Hypertension Status: Acute Qualifiers: Hypertension type: primary hypertension Qualified Code(s): I10 - Essential (primary) hypertension Plan to address problem: Monitor blood pressure every shift, continue medical management (6) Anemia (7) Hypoglycemia (8) DVT prophylaxis Status: Acute Plan to address problem: SCD to bilateral lower extremities while in bed, patient is ambulatory History Interval history: Patient seen and examined reports lethargy reports dizziness tells me that he has a history of migraines. Hospitalist Physical - Physical exam Narrative exam: VITAL SIGNS: Reviewed. GENERAL: The patient appears normally developed, Vital signs as documented. HEAD: No signs of head trauma. EYES: Pupils are equal. Extraocular motions intact. EARS: Hearing grossly intact. MOUTH: Oropharynx is normal. NECK: No adenopathy, no JVD. CHEST: Chest with clear breath sounds bilaterally. No wheezes, rales, or rhonchi. CARDIAC: Regular rate and rhythm. S1 and S2, without murmurs, gallops, or rubs. VASCULAR: No Edema. Peripheral pulses normal and equal in all extremities. ABDOMEN: Soft, mild tender on the left lower quadrant and mild distended. No rebound or guarding, and no masses palpated. Bowel Sounds normal. MUSCULOSKELETAL: Good range of motion of all major joints. Extremities without clubbing, cyanosis or edema. NEUROLOGIC EXAM: Alert and oriented x 3 No focal sensory or strength defic its. Speech normal. Follows commands. PSYCHIATRIC: Mood normal. SKIN: detail exam as documented in skin assessment - Constitutional Vitals: Temp Pulse Resp BP Pulse Ox 99.0 F 79 18 110/80 98 04/26/21 07:48 04/26/21 07:48 04/26/21 07:48 04/26/21 07:48 04/26/21 07:48 General appearance: Present: mild distress, cachectic Results - Labs CBC & Chem 7: 04/26/21 04:59 04/26/21 04:59 Labs: Laboratory Last Values WBC 4.8 K/mm3 (4.5-11.0) 04/26/21 04:59 RBC 3.22 M/mm3 (3.65-5.03) L 04/26/21 04:59 Hgb 9.0 gm/dl (11.8-15.2) L 04/26/21 04:59 Hct 27.3 % (35.5-45.6) L 04/26/21 04:59 MCV 85 fl (84-94) 04/26/21 04:59 MCH 28 pg (28-32) 04/26/21 04:59 MCHC 33 % (32-34) 04/26/21 04:59 RDW 16.9 % (13.2-15.2) H 04/26/21 04:59 Plt Count 329 K/mm3 (140-440) 04/26/21 04:59 Lymph % (Auto) 43.8 % (13.4-35.0) H 04/26/21 04:59 [place] % (Auto) 7.9 % (0.0-7.3) H 04/26/21 04:59 Eos % (Auto) 0.7 % (0.0-4.3) 04/26/21 04:59 Baso % (Auto) 1.0 % (0.0-1.8) 04/26/21 04:59 Lymph # (Auto) 2.1 K/mm3 (1.2-5.4) 04/26/21 04:59 [place] # (Auto) 0.4 K/mm3 (0.0-0.8) 04/26/21 04:59 Eos # (Auto) 0.0 K/mm3 (0.0-0.4) 04/26/21 04:59 Baso # (Auto) 0.0 K/mm3 (0.0-0.1) 04/26/21 04:59 Seg Neutrophils % 46.6 % (40.0-70.0) 04/26/21 04:59 Seg Neutrophils # 2.2 K/mm3 (1.8-7.7) 04/26/21 04:59 Sodium 140 mmol/L (137-145) 04/26/21 04:59 Potassium 4.5 mmol/L (3.6-5.0) 04/26/21 04:59 Chloride 104.6 mmol/L (98-107) 04/26/21 04:59 Carbon Dioxide 29 mmol/L (22-30) 04/26/21 04:59 Anion Gap 11 mmol/L 04/26/21 04:59 BUN 6 mg/dL (9-20) L 04/26/21 04:59 Creatinine 0.7 mg/dL (0.8-1.3) L 04/26/21 04:59 Estimated GFR > 60 ml/min 04/26/21 04:59 BUN/Creatinine Ratio 9 % 04/26/21 04:59 Glucose 70 mg/dL (75-100) L 04/26/21 04:59 Calcium 8.4 mg/dL (8.4-10.2) 04/26/21 04:59 Total Bilirubin 0.20 mg/dL (0.1-1.2) 04/26/21 04:59 AST 16 units/L (5-40) 04/26/21 04:59 ALT < 5 units/L (7-56) L 04/26/21 04:59 Alkaline Phosphatase 83 units/L (35-129) 04/26/21 04:59 Total Protein 6.6 g/dL (6.3-8.2) 04/26/21 04:59 Albumin 2.8 g/dL (3.9-5) L 04/26/21 04:59 Albumin/Globulin Ratio 0.7 % 04/26/21 04:59 Lipase 132 units/L (13-60) H 04/25/21 12:11 Urine Color Yellow (Yellow) 04/25/21 11:40 Urine Turbidity Slightly-cloudy (Clear) 04/25/21 11:40 Urine pH 6.0 (5.0-7.0) 04/25/21 11:40 Ur Specific [place] 1.011 (1.003-1.030) 04/25/21 11:40 Urine Protein <15 mg/dl mg/dL (Negative) 04/25/21 11:40 Urine Glucose (UA) Neg mg/dL (Negative) 04/25/21 11:40 Urine Ketones Neg mg/dL (Negative) 04/25/21 11:40 Urine Blood Neg (Negative) 04/25/21 11:40 Urine Nitrite Neg (Negative) 04/25/21 11:40 Urine Bilirubin Neg (Negative) 04/25/21 11:40 Urine Urobilinogen < 2.0 mg/dL (<2.0) 04/25/21 11:40 Ur Leukocyte Esterase Neg (Negative) 04/25/21 11:40 Urine WBC (Auto) 1.0 /HPF (0.0-6.0) 04/25/21 11:40 Urine RBC (Auto) 2.0 /HPF (0.0-6.0) 04/25/21 11:40 U Epithel Cells (Auto) < 1.0 /HPF (0-13.0) 04/25/21 11:40 Calcium Oxalate Crystal Few 04/25/21 11:40 Amorphous Crystals Few 04/25/21 11:40 Urine Mucus Few /HPF 04/25/21 11:40 Urine Opiates Screen Negative 04/25/21 12:13 Urine Methadone Screen Negative 04/25/21 12:13 Ur Barbiturates Screen Negative 04/25/21 12:13 Ur Phencyclidine Scrn Negative 04/25/21 12:13 Ur Amphetamines Screen Negative 04/25/21 12:13 U Benzodiazepines Scrn Negative 04/25/21 12:13 Urine Cocaine Screen Negative 04/25/21 12:13 U Marijuana (THC) Screen Presumptive positive 04/25/21 12:13 Drugs of Abuse Note Disclamer 04/25/21 12:13 Plasma/Serum Alcohol < 0.01 % (0-0.07) 04/25/21 12:11 [place]/IV: Voiding Method Toilet Active Medications - Current Medications Current Medications: Generic Name Dose Route Start Last Admin Trade Name Freq PRN Reason Stop Dose Admin Acetaminophen 650 mg 04/25/21 16:00 Acetaminophen 325 Mg Tab PO Q4H PRN Pain MILD(1-3)/Fever >100.5/NORRIS Albuterol 2.5 mg 04/25/21 16:00 Albuterol 2.5 Mg/3 Ml Nebu IH Q4HRT PRN Shortness Of Breath Hydromorphone HCl 0.5 mg 04/25/21 16:00 Hydromorphone 1 Mg/1 Ml Inj IV Q8H PRN Pain , Severe (7-10) Sodium Chloride 1,000 mls @ 75 mls/hr 04/25/21 16:00 04/26/21 05:55 Nacl 0.9% 1000 Ml IV 75 mls/hr DIRECT PK Administration Ondansetron HCl 4 mg 04/25/21 16:00 Ondansetron 4 Mg/2 Ml Inj IV Q8H PRN Nausea And Vomiting Oxycodone/Acetaminophen 1 tab 04/25/21 16:00 Oxycodone /Acetaminophen 5-325mg Tab PO Q6H PRN Pain, Moderate (4-6) Sodium Chloride 10 ml 04/25/21 22:00 04/26/21 08:51 Sodium Chloride 0.9% 10 Ml Flush Syringe IV 10 ml BID PK Administration Sodium Chloride 10 ml 04/25/21 16:00 Sodium Chloride 0.9% 10 Ml Flush Syringe IV PRN PRN LINE FLUSH
[2021-04-26 11:08] LABS: INR 1.02 (0.87-1.13)
--- NOTE | 2021-04-26 12:07 | Ultrasound Report ---
ULTRASOUND ABDOMEN LIMITED HISTORY: Ascites TECHNIQUE: Transabdominal ultrasound. FINDINGS: This examination was scheduled as a ultrasound-guided paracentesis. The 4 quadrants of the abdomen were scanned for ascites. No ascites is demonstrated. I reviewed the previous CT abdomen pelv is performed earlier today which notes ascites is present. In my opinion there is no ascites. The mes enteric fat does have a a slightly abnormal/hazy appearance which I suspect is secondary to anasarca and not free fluid. These findings were discussed with Dr. Giraldo. Paracentesis was canceled. IMPRESSION: No ascites. Signer Name: Roderick Moore Jr, MD Signed: 04/26/2021 12:03 PM Workstation Name: [id number]
--- NOTE | 2021-04-26 12:07 | Consultation ---
History of Present Illness Consult date: 04/26/21 Chief complaint: abd pain, dizziness - History of present illness History of present illness: Patient is a 50-year-old male who presented to ER with right sided abdominal pain and dizziness for the last 3 days. He states the symptoms started acutely and gradually worsened. Being at work all day made the symptoms worse. He has b een tolerating a diet with good appetite. No n/v or c/d. No f/c. +Sweats. W/u in ER included CT of Abd/pelvis which showed pelvic fluid and lymphadenopathy (unchanged from prior CT), and mild dilatation of pancreatic duct. Surgery is consulted. The patient has known retroperitoneal and inguinal lymphadenopathy seen on CT scan earlier this year along with right inguinal hernia. He underwent w/u for fevers of unknown etiology. this included CBC, Bl cx, UA, and lymph node biopsy in January 2021. LN bx was negative for malignancy. He underwent right inguinal scrotal hernia repair with mesh in February 2021 without complications. that is becoming more symptomatic. Patient was referred to ID for further w/u of fevers and GI for cscope. He has not followed up with these services yet. Past History Past Medical History: hypertension, other (See HPI) Past Surgical History: hernia repair, Other (Right hand surgery) Social history: single, smoking. denies: alcohol abuse, prescription drug abuse Family history: hypertension Medications and Allergies Allergies Allergy/AdvReac Type Severity Reaction Status Date / Time No Known Allergies Allergy Verified 04/25/21 11:27 Home Medications Medication Instructions Recorded Confirmed Last Taken Type HYDROcodone/APAP 5-325 [[place] 1 each PO Q6HR PRN #20 tablet 02/21/21 Unknown Rx 5/325] Ibuprofen [Motrin 800 MG tab] 800 mg PO Q8HR #30 tablet 02/21/21 Unknown Rx Active Meds: Active Medications Acetaminophen (Acetaminophen 325 Mg Tab) 650 mg PO Q4H PRN PRN Reason: Pain MILD(1-3)/Fever >100.5/NORRIS Albuterol (Albuterol 2.5 Mg/3 Ml Nebu) 2.5 mg IH Q4HRT PRN PRN Reason: Shortness Of Breath Hydromorphone HCl (Hydromorphone 1 Mg/1 Ml Inj) 0.5 mg IV Q8H PRN PRN Reason: Pain , Severe (7-10) Sodium Chloride (Nacl 0.9% 1000 Ml) 1,000 mls @ 75 mls/hr IV DIRECT [facility] Last Admin: 04/26/21 05:55 Dose: 75 mls/hr Documented by: Ondansetron HCl (Ondansetron 4 Mg/2 Ml Inj) 4 mg IV Q8H PRN PRN Reason: Nausea And Vomiting Oxycodone/Acetaminophen (Oxycodone /Acetaminophen 5-325mg Tab) 1 tab PO Q6H PRN PRN Reason: Pain, Moderate (4-6) Sodium Chloride (Sodium Chloride 0.9% 10 Ml Flush Syringe) 10 ml IV BID [facility] Last Admin: 04/26/21 08:51 Dose: 10 ml Documented by: Sodium Chloride (Sodium Chloride 0.9% 10 Ml Flush Syringe) 10 ml IV PRN PRN PRN Reason: LINE FLUSH Review of Systems All systems: negative (10 pt ROS performed and negative except for that listed in HPI) Exam Vital Signs Temp Pulse Resp BP Pulse Ox 97.9 F 61 18 117/83 100 04/25/21 11:29 04/25/21 11:29 04/25/21 11:29 04/25/21 11:29 04/25/21 11:29 Narrative exam: Gen: AAOx3. NAD ENT: No scleral icterus CV: s1, S2+ Resp; even and unlabored Abd: soft, mildly distended, mild R sided TTP. No r/r/g. Well healed surgical scar. Ext: no c/c/e Results - Labs 04/26/21 04:59 04/26/21 04:59 Abnormal lab results 04/25/21 04/25/21 04/25/21 Range/Units 12:11 12:11 12:11 WBC 4.1 L (4.5-11.0) K/mm3 RBC 3.16 L (3.65-5.03) M/mm3 Hgb 8.9 L (11.8-15.2) gm/dl Hct 26.7 L (35.5-45.6) % RDW 16.6 H (13.2-15.2) % Lymph % (Auto) 41.3 H (13.4-35.0) % [place] % (Auto) 8.8 H (0.0-7.3) % BUN 8 L (9-20) mg/dL Creatinine 0.6 L (0.8-1.3) mg/dL Glucose (75-100) mg/dL ALT < 5 L (7-56) units/L Albumin 2.9 L (3.9-5) g/dL Lipase 132 H (13-60) units/L 04/26/21 04/26/21 Range/Units 04:59 04:59 WBC (4.5-11.0) K/mm3 RBC 3.22 L (3.65-5.03) M/mm3 Hgb 9.0 L (11.8-15.2) gm/dl Hct 27.3 L (35.5-45.6) % RDW 16.9 H (13.2-15.2) % Lymph % (Auto) 43.8 H (13.4-35.0) % [place] % (Auto) 7.9 H (0.0-7.3) % BUN 6 L (9-20) mg/dL Creatinine 0.7 L (0.8-1.3) mg/dL Glucose 70 L (75-100) mg/dL ALT < 5 L (7-56) units/L Albumin 2.8 L (3.9-5) g/dL Lipase (13-60) units/L Diabetes panel 04/25/21 04/26/21 Range/Units 12:11 04:59 Sodium 138 140 (137-145) mmol/L Potassium 4.1 4.5 (3.6-5.0) mmol/L Chloride 102.5 104.6 (98-107) mmol/L Carbon Dioxide 30 29 (22-30) mmol/L BUN 8 L 6 L (9-20) mg/dL Creatinine 0.6 L 0.7 L (0.8-1.3) mg/dL Glucose 83 70 L (75-100) mg/dL Calcium 8.4 8.4 (8.4-10.2) mg/dL AST 18 16 (5-40) units/L ALT < 5 L < 5 L (7-56) units/L Alkaline Phosphatase 86 83 (35-129) units/L Total Protein 7.0 6.6 (6.3-8.2) g/dL Albumin 2.9 L 2.8 L (3.9-5) g/dL Calcium panel 04/25/21 04/26/21 Range/Units 12:11 04:59 Calcium 8.4 8.4 (8.4-10.2) mg/dL Albumin 2.9 L 2.8 L (3.9-5) g/dL Pituitary panel 04/25/21 04/26/21 Range/Units 12:11 04:59 Sodium 138 140 (137-145) mmol/L Potassium 4.1 4.5 (3.6-5.0) mmol/L Chloride 102.5 104.6 (98-107) mmol/L Carbon Dioxide 30 29 (22-30) mmol/L BUN 8 L 6 L (9-20) mg/dL Creatinine 0.6 L 0.7 L (0.8-1.3) mg/dL Glucose 83 70 L (75-100) mg/dL Calcium 8.4 8.4 (8.4-10.2) mg/dL Adrenal panel 04/25/21 04/26/21 Range/Units 12:11 04:59 Sodium 138 140 (137-145) mmol/L Potassium 4.1 4.5 (3.6-5.0) mmol/L Chloride 102.5 104.6 (98-107) mmol/L Carbon Dioxide 30 29 (22-30) mmol/L BUN 8 L 6 L (9-20) mg/dL Creatinine 0.6 L 0.7 L (0.8-1.3) mg/dL Glucose 83 70 L (75-100) mg/dL Calcium 8.4 8.4 (8.4-10.2) mg/dL Total Bilirubin 0.20 0.20 (0.1-1.2) mg/dL AST 18 16 (5-40) units/L ALT < 5 L < 5 L (7-56) units/L Alkaline Phosphatase 86 83 (35-129) units/L Total Protein 7.0 6.6 (6.3-8.2) g/dL Albumin 2.9 L 2.8 L (3.9-5) g/dL - Imaging CT scan - abdomen: report reviewed, image reviewed CT scan - pelvis: report reviewed, image reviewed Assessment and Plan 50 yo M with 1. abdominal pain 2. dizziness 3. retroperitoneal and inguinal lymphadenopathy 4. anemia Plan: 1. NPO for u/s para, Reg diet after 2. recommend heme/onc c/s for LAD, anemia,. Prior inguinal lymph node bx was negative for malignancy x2 3. Paracentesis to evaluate ascites 4. DVT ppx 5. 1' service w/u for acute dizziness 6. Consider MRI Abd to further evaluate pancreatic duct/pancreas 7. No acute surgical intervention at this time Thank you, please call with questions.
[2021-04-26] MEDS ORDERED: ONDANSETRON 4 MG/2 ML INJ IV PRN (12:23)
--- NOTE | 2021-04-26 13:10 | Cat Scan Report ---
CT HEAD WITHOUT CONTRAST INDICATION / CLINICAL INFORMATION: headache. TECHNIQUE: Axial imaging performed from the skull apex through the skull base without the use of cont rast. Sagittal and coronal reformatted images. All CT scans at this location are performed using CT dose reduction for ALARA by means of automated exposure control. COMPARISON: 06/09/2018 FINDINGS: CEREBRAL PARENCHYMA: No significant abnormality. No acute territorial infarct. HEMORRHAGE: None. EXTRA-AXIAL SPACES: Normal in size and morphology for the patient's age. VENTRICULAR SYSTEM: Normal in size and morphology for the patient's age. MIDLINE SHIFT OR HERNIATION: None. CEREBELLUM / BRAINSTEM: No significant abnormality. CALVARIUM: No significant abnormality. ORBITS: Normal as visualized. PARANASAL SINUSES / MASTOID AIR CELLS: Normal as visualized. SOFT TISSUES of HEAD: No significant abnormality. ADDITIONAL FINDINGS: None. IMPRESSION: No acute intracranial abnormality. No significant change since 06/09/2018. Signer Name: Roderick Moore Jr, MD Signed: 04/26/2021 1:06 PM Workstation Name: [id number]
[2021-04-26] MEDS: METOCLOPRAMIDE 10 MG TAB PO SCH (14:34)
[2021-04-26] MEDS: HYDROmorphone 1 MG/1 ML INJ IV PRN ×2 (14:35→22:30)
[2021-04-27 07:55] VITALS: BP 110/73
[2021-04-27] MEDS: METOCLOPRAMIDE 10 MG TAB PO SCH ×4 (09:51→11:14)
--- NOTE | 2021-04-27 10:41 | Discharge Summary ---
Providers - Providers Date of Admission: 04/25/21 15:50 Attending physician: ADEOLA GARG MD 04/25/21 15:32 Consult to Physician [CONS] Urgent Comment: Consulting Provider: SOHAIL SUH Physician Instructions: Reason For Exam: Pelvic fluid 04/26/21 10:32 Consult to Dietitian/Nutrition [CONS] Routine Physician Instructions: Reason For Exam: Reason for Consult: Malnutrition 04/26/21 12:02 Consult to Physician [CONS] Routine Comment: Consulting Provider: TIFF BAKER Physician Instructions: Reason For Exam: abdominal lymphadenopathy, prior LN biopsy neg 04/26/21 12:24 Consult to Dietitian/Nutrition [CONS] Routine Physician Instructions: Reason For Exam: Reason for Consult: Malnutrition Primary care physician: DRAPERY INSPECTOR Hospitalization Reason for admission: Nausea vomiting Condition: Stable Hospital course: 50 YO Male with Nicotine Dependence, Malnutritioin, HTN presents to ED for evaluation. Patient reports "my stomach hurts". Patient states that he has experienced abdominal pain, nausea, abdominal cramping over the past 2 days with worsening symptoms over the same timeframe. Patient also complains of dizziness over the same timeframe. Patient denies decreased oral intake. EMS notified and upon arrival the patient was found to be in distress and subsequently transported to [facility] for further care and evaluation of the aforementioned symptoms. The patient was seen and evaluated in the emergency department. All lab and imaging studies reviewed. Patient with CT scan of the abdomen and pelvis and was found to have free peritoneal fluid, as well as malnutrition. Surgical team consulted. Patient placed in observation status and admitted to surgical floor. Patient denies fever, chills, chest pain, palpitation, productive cough, skin rash, recent ill contacts, trauma, ingestion of food/water from new or different sources, bright red blood per rectum, or known exposure to COVID-19. No prior admission for review. All medication listed at time of admission has been reconciled. 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 He does endorse to photophobia and phonophobia. Surgery evaluation ongoing awaiting Paracentesis for noted Ascites. Per surgical documentation patient had prior inguinal lymph node biopsy which was negative for malignancy x2. We will proceed with hematology evaluation. I will also obtain imaging studies considering headache nausea. Dietitian will be consulted due to severe weight loss and malnutrition. 04/27: Patient seen and examined this morning Mr. Howell reports improvement in headache nausea vomiting and phonophobia and photophobia. He does not want any medication for the migraine. He understands the need to follow-up with GI doctor restorative care technician as recommended previously and also with his primary care physician I also discussed with him the importance of having an MRI abdomen and pelvis to look at the pancreas. He verbalized understanding I also placed this order reports can be forwarded to his primary care physician and GI doctor. Surgical input is appreciated no surgery needed he is tolerating his diet this morning and is stable for discharge there was no drainable fluid is noted. Counseling for tobacco cessation was done in detail he verbalized understanding 15 minutes of counseling was provided (1) Abdominal pain with ascites Status: Acute Qualifiers: Abdominal location: lower abdomen, unspecified Qualified Code(s): R10.30 - Lower abdominal pain, unspecified Plan to address problem: CT scan abdomen and pelvis, serial abdominal exam, surgery team consulted, bowel rest, IV fluid resuscitation therapy, supportive care, pain control. (2) Malnutrition severe protein calorie malnutrition Status: Acute Qualifiers: Malnutrition type: protein-calorie malnutrition Plan to address problem: Increase protein intake, dietary supplementation, supportive care (3) Free fluid in pelvis-retroperitoneal and inguinal lymphadenopathy Status: Acute Plan to address problem: CT scan abdomen and pelvis, surgical team consulted, serial abdominal exam, supportive care. (4) migraine headache (5) Hypertension Status: Acute Qualifiers: Hypertension type: primary hypertension Qualified Code(s): I10 - Essential (primary) hypertension Plan to address problem: Monitor blood pressure every shift, continue medical management (6) Anemia (7) Hypoglycemia Disposition: DC-01 TO HOME OR SELFCARE Final Discharge Diagnosis (Prints w/discharge instructions): Abdominal pain with DIFFUSED LYMPHADENOPATHY AND weight loss and severe malnutrition Time spent for discharge: 35-minute Core Measure Documentation - Palliative Care Palliative Care/ Comfort Measures: Not Applicable - Core Measures Any of the following diagnoses?: none Exam - Physical Exam Narrative exam: VITAL SIGNS: Reviewed. GENERAL: The patient appears normally developed, Vital signs as documented. HEAD: No signs of head trauma. EYES: Pupils are equal. Extraocular motions intact. EARS: Hearing grossly intact. MOUTH: Oropharynx is normal. NECK: No adenopathy, no JVD. CHEST: Chest with clear breath sounds bilaterally. No wheezes, rales, or rhonchi. CARDIAC: Regular rate and rhythm. S1 and S2, without murmurs, gallops, or rubs. VASCULAR: No Edema. Peripheral pulses normal and equal in all extremities. ABDOMEN: Soft, mild tender on the left lower quadrant and mild distended. No rebound or guarding, and no masses palpated. Bowel Sounds normal. MUSCULOSKELETAL: Good range of motion of all major joints. Extremities without clubbing, cyanosis or edema. NEUROLOGIC EXAM: Alert and oriented x 3 No focal sensory or strength deficits. Speech normal. Follows commands. PSYCHIATRIC: Mood normal. SKIN: detail exam as documented in skin assessment - Constitutional Vitals: Temp Pulse Resp BP Pulse Ox 98.1 F 80 16 110/73 99 04/27/21 07:29 04/27/21 07:29 04/27/21 07:29 04/27/21 07:29 04/27/21 07:29 Plan Activity: advance as tolerated, fall precautions Diet: regular Special Instructions: record daily weights, record daily BP diary, smoking cessation Plan of Treatment: MUST FOLLOW WITH YOUR PRIMARY CARE DOCTOR MUST OBTAIN MRI/MRA OF THE ABDOMEN AND PELVIS TO FURTHER EVALUATE PANCREATIC HEAD, DUCTS AND NOTED LYMPHADENOPATHY Follow up with: PRIMARY CARE, [Primary Care Provider] - 7 Days TRANG HECK MD [Staff Physician] - 7 Days FRANCA SORIA MD [Staff Physician] - 7 Days SOHAIL SUH DO [Staff Physician] - 7 Days Prescriptions: Metoclopramide [Reglan TAB] 5 mg PO ACHS #30 tablet Other Discharge Orders: MR abdomen MRCP Location: None Selected MR abdomen wo/w con Location: None Selected
--- NOTE | 2021-04-29 17:30 | Electrocardiograph Report ---
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
== END 2021-04-27 13:15 | disposition home or self-care (01) ==
LOC: ED 11:25 → 3B 15:50 → 3B-SURG 04-26 12:06
PROVIDERS: ADMIT Internal Medicine; ATTEND Internal Medicine
DX: R18.8 Other ascites (principal); E46 Unspecified protein-calorie malnutrition; R10.30 Lower abdominal pain, unspecified; I10 Essential (primary) hypertension; R42 Dizziness and giddiness; R11.2 Nausea with vomiting, unspecified; K86.9 Disease of pancreas, unspecified; E43 Unspecified severe protein-calorie malnutrition; G43.909 Migraine, unspecified, not intractable, without status migrainosus; E16.2 Hypoglycemia, unspecified; D64.9 Anemia, unspecified; Z68.1 Body mass index [BMI] 19.9 or less, adult; Z79.899 Other long term (current) drug therapy; Z98.890 Other specified postprocedural states
CPT/HCPCS: 36415; 70450; 74177; 76705; 80053; 80307; 81001; 83690; 85025; 85610; 93005; 96361; 96374; 96375; 96376; 99285; G0378; J1170; J2270; J2405; J7030; Q9967; 80320; G0480

== ENCOUNTER 2021-07-02 15:54 | Emergency (ER) | payer OTHER | END 2021-07-02 19:36 | disposition left against medical advice (07) | LOC: ED 15:54 | DX: R19.7 Diarrhea, unspecified (principal); Z53.21 Procedure and treatment not carried out due to patient leaving prior to being seen by health care provider ==